=== PATIENT | female | born 1980 | race Two or more races ===

== ENCOUNTER 2021-12-13 09:16 | Emergency (ER) | payer MEDICAID, OTHER ==
[~2021-12-13] VITALS: Ht 157.5 cm; Wt 74.6 kg
[2021-12-13 09:22] VITALS: BP 157/100
== END 2021-12-13 11:35 | disposition left against medical advice (07) ==
LOC: ER 09:16
DX: R04.0 Epistaxis (principal); Z53.21 Procedure and treatment not carried out due to patient leaving prior to being seen by health care provider

== ENCOUNTER 2022-03-25 16:14 | Inpatient (IN) | payer MEDICAID ==
[~2022-03-25] VITALS: Ht 157.5 cm; Wt 71.0 kg
[2022-03-25] MEDS ORDERED: ASPirin 81 mg TAB PO ONE (16:45)
[2022-03-25] MEDS ORDERED: SODIUM CHLORIDE 0.9% 1,000 ML IV ONE (16:45)
[2022-03-25] MEDS ORDERED: METOPROLOL TARTRATE 25 MG TAB PO ONE (17:00)
[2022-03-25] MEDS ORDERED: METOPROLOL TARTRATE 1MG/1ML-5ML VIAL IV ONE (17:00)
[2022-03-25 17:40] LABS: Albumin 2.8 g/dL (3.4-5.0); Calcium 8.6 mg/dL (8.5-10.1); Potassium 4.3 mmol/L (3.5-5.1)
[2022-03-25 17:43] LABS: Bilirubin, Total 0.5 mg/dL (0.2-1.0); Total Protein 7.5 g/dL (6.4-8.2)
[2022-03-25 17:51] LABS: Basophils # (auto) 0 10 ^3/uL (0-0.2); Eosinophils # (auto) 0 10 ^3/uL (0-0.8); Eosinophils % (auto) 0.1 % (0.0-7.0); Mean Corpuscular Hemoglobin 15.3 pg (28.0-32.0)
[2022-03-25 17:53] LABS: Basophils % (auto) 0.1 % (0.0-2.0); Hematocrit 24.2 % (36.0-46.0); Hemoglobin 7.1 g/dL (12.2-16.2); Lymphocytes # (auto) 0.8 10 ^3/uL (0.4-5.4); Lymphocytes % (auto) 8.9 % (10.0-50.0); Mean Corpuscular Hgb Conc. 29.5 g/dL (32.0-36.0); Monocytes # (auto) 0.8 10 ^3/uL (0-1.3); Monocytes % (auto) 8.1 % (0.0-12.0); Neutrophils # (auto) 7.7 10 ^3/uL (1.6-8.6); Neutrophils % (auto) 82.8 % (37.0-80.0); Nucleated Red Blood Cells % 0.2 %; Red Blood Cells 4.66 10^6/uL (4.0-5.20); Red Cell Distribution Width 21.5 % (11.8-14.3); White Blood Cell 9.3 10^3/uL (4.4-10.8)
[2022-03-25] MEDS ORDERED: IOHEXOL 350 MG/ML 100ML IJ ONE (18:38)
[2022-03-25] MEDS ORDERED: LACTATED RINGER'S 1,000 ML IV ONE (20:45)
[2022-03-25 20:48] LABS: Urine Bacteria FEW /hpf (None Seen); Urine Blood Negative /uL (Negative); Urine Mucus FEW (None Seen)
[2022-03-25 20:50] LABS: Urine Specific Gravity > 1.050 (1.001-1.035)
[2022-03-25 20:51] LABS: Urine WBC 20-22 /hpf (0 - 5)
[2022-03-25] MEDS ORDERED: DOCUSATE SOD 100 MG CAP PO PRN (21:30)
[2022-03-25] MEDS ORDERED: IBUPROFEN 600 MG TAB PO PRN (21:30)
[2022-03-25] MEDS ORDERED: AZITHROMYCIN 500MG/ 250ML 250 ML IV ONE (21:30)
[2022-03-25] MEDS ORDERED: NITROGLYCERIN 0.4 MG SL TAB SL PRN (21:30)
[2022-03-25] MEDS ORDERED: TEMAZEPAM 15 MG CAP PO PRN (21:30)
[2022-03-25] MEDS ORDERED: MORPHINE SULFATE INJ 2 MG/ml SYRG IV PRN (21:30)
[2022-03-25] MEDS ORDERED: SODIUM CHLORIDE 0.9% 1,000 ML IV SCH (21:30)
[2022-03-25] MEDS ORDERED: ALBUTEROL SULF HFA 90MCG INH 200DOSE IN SCH (22:00)
[2022-03-25 22:25] LABS: Albumin 2.6 g/dL (3.4-5.0); Calcium 8.6 mg/dL (8.5-10.1); Potassium 4.3 mmol/L (3.5-5.1)
[2022-03-25 22:28] LABS: BUN/Creatinine Ratio 23.8; Bilirubin, Total 0.4 mg/dL (0.2-1.0); Total Protein 7.5 g/dL (6.4-8.2)
[2022-03-25 22:30] LABS: Basophils # (auto) 0 10 ^3/uL (0-0.2); Eosinophils # (auto) 0 10 ^3/uL (0-0.8); Hemoglobin 7.1 g/dL (12.2-16.2); Monocytes # (auto) 0.7 10 ^3/uL (0-1.3); Neutrophils # (auto) 6.4 10 ^3/uL (1.6-8.6); Nucleated Red Blood Cells % 0.2 %; White Blood Cell 8.1 10^3/uL (4.4-10.8)
[2022-03-25 22:31] LABS: Basophils % (auto) 0.4 % (0.0-2.0); Hematocrit 26.3 % (36.0-46.0); Lymphocytes # (auto) 0.9 10 ^3/uL (0.4-5.4); Lymphocytes % (auto) 11.6 % (10.0-50.0); Mean Corpuscular Hemoglobin 14.2 pg (28.0-32.0); Mean Corpuscular Hgb Conc. 27.1 g/dL (32.0-36.0); Mean Corpuscular Volume 52.3 fL (80.0-100.0); Monocytes % (auto) 8.2 % (0.0-12.0); Neutrophils % (auto) 79.8 % (37.0-80.0); Red Blood Cells 5.02 10^6/uL (4.0-5.20)
[2022-03-25] MEDS ORDERED: ALBUTEROL SULF 2.5 MG/0.5ML(0.5%) NEB SOLN NEB PRN (23:15)
[2022-03-25] MEDS: ONDANSETRON HCL 4 MG/2 ML VIAL IV PRN (23:25)
[2022-03-25] MEDS: METOPROLOL TARTRATE 50 MG TAB PO SCH (23:28)
[2022-03-26] VITALS (7 sets, daily range): BP systolic 124–152; BP diastolic 87–101
[2022-03-26 07:05] LABS: Basophils # (auto) 0 10 ^3/uL (0-0.2); Eosinophils # (auto) 0 10 ^3/uL (0-0.8); Hemoglobin 7.5 g/dL (12.2-16.2)
[2022-03-26 07:09] LABS: Basophils % (auto) 0.1 % (0.0-2.0); Lymphocytes # (auto) 0.8 10 ^3/uL (0.4-5.4); Lymphocytes % (auto) 8.1 % (10.0-50.0); Mean Corpuscular Hemoglobin 15.2 pg (28.0-32.0); Mean Corpuscular Hgb Conc. 28.7 g/dL (32.0-36.0); Mean Corpuscular Volume 52.8 fL (80.0-100.0); Monocytes # (auto) 0.6 10 ^3/uL (0-1.3); Monocytes % (auto) 6.1 % (0.0-12.0); Neutrophils # (auto) 7.9 10 ^3/uL (1.6-8.6); Neutrophils % (auto) 85.7 % (37.0-80.0); Nucleated Red Blood Cells % 0.4 %; Red Blood Cells 4.94 10^6/uL (4.0-5.20); Red Cell Distribution Width 21.8 % (11.8-14.3); White Blood Cell 9.2 10^3/uL (4.4-10.8)
[2022-03-26 07:47] LABS: Albumin 2.6 g/dL (3.4-5.0); BUN/Creatinine Ratio 21.5; Bilirubin, Total 0.8 mg/dL (0.2-1.0); Calcium 8.9 mg/dL (8.5-10.1)
[2022-03-26] MEDS: AZITHROMYCIN 500MG/ 250ML 250 ML IV SCH (10:00)
[2022-03-26] MEDS: FAMOTIDINE (10MG/ML) 2ML VL IV SCH (11:30)
[2022-03-26] MEDS: ASPirin 81 mg TAB PO SCH (11:31)
[2022-03-26] MEDS: METOPROLOL TARTRATE 50 MG TAB PO SCH ×2 (11:33→21:54)
[2022-03-26] MEDS: SODIUM CHLORIDE 0.9% 1,000 ML IV SCH ×2 (15:30→23:30)
[2022-03-26] MEDS ORDERED: ALBUTEROL SULF 2.5 MG/0.5ML(0.5%) NEB SOLN NEB PRN (15:45)
[2022-03-26] MEDS ORDERED: ALBUTEROL MEDNEB 2.5 mg/3ml NEB ONE (18:57)
[2022-03-26] MEDS: HYDROcodone-ACET 5/325MG TAB PO PRN (20:49)
[2022-03-26] MEDS: hydrALAZINE HCL 20 MG/ML VL IV PRN (22:10)
[2022-03-27] VITALS (13 sets, daily range): BP systolic 110–162; BP diastolic 69–102
[2022-03-27] MEDS: hydrALAZINE HCL 20 MG/ML VL IV PRN (05:32)
[2022-03-27 06:22] LABS: INR 1.25 (0.9-1.15); Partial Thromboplastin Time 30.2 sec (24.6-33.4)
[2022-03-27 06:24] LABS: Basophils # (auto) 0 10 ^3/uL (0-0.2); Eosinophils # (auto) 0 10 ^3/uL (0-0.8); Mean Corpuscular Hgb Conc. 28.9 g/dL (32.0-36.0); White Blood Cell 5.8 10^3/uL (4.4-10.8)
[2022-03-27 06:26] LABS: Basophils % (auto) 0.6 % (0.0-2.0); Eosinophils % (auto) 0.6 % (0.0-7.0); Hematocrit 22.2 % (36.0-46.0); Lymphocytes % (auto) 17.1 % (10.0-50.0); Mean Corpuscular Hemoglobin 15.1 pg (28.0-32.0); Mean Corpuscular Volume 52.2 fL (80.0-100.0); Monocytes # (auto) 0.4 10 ^3/uL (0-1.3); Monocytes % (auto) 7.7 % (0.0-12.0); Neutrophils # (auto) 4.3 10 ^3/uL (1.6-8.6); Nucleated Red Blood Cells % 0.6 %; Red Blood Cells 4.25 10^6/uL (4.0-5.20)
[2022-03-27 06:27] LABS: Potassium 3.9 mmol/L (3.5-5.1)
[2022-03-27 06:35] LABS: Albumin 2.5 g/dL (3.4-5.0); BUN/Creatinine Ratio 28.4; Bilirubin, Total 0.6 mg/dL (0.2-1.0); Calcium 8.5 mg/dL (8.5-10.1); Total Protein 7.4 g/dL (6.4-8.2)
[2022-03-27 06:50] LABS: Red Cell Distribution Width 22.1 % (11.8-14.3)
[2022-03-27 06:52] LABS: Hemoglobin 6.4 g/dL (12.2-16.2)
[2022-03-27 07:59] LABS: Basophils # (auto) 0 10 ^3/uL (0-0.2); Eosinophils # (auto) 0 10 ^3/uL (0-0.8)
[2022-03-27 08:01] LABS: Basophils % (auto) 0.2 % (0.0-2.0); Eosinophils % (auto) 0.1 % (0.0-7.0); Hematocrit 23.2 % (36.0-46.0); Lymphocytes # (auto) 0.8 10 ^3/uL (0.4-5.4); Mean Corpuscular Volume 51.9 fL (80.0-100.0); Monocytes # (auto) 0.5 10 ^3/uL (0-1.3); Monocytes % (auto) 5.8 % (0.0-12.0); Neutrophils # (auto) 7.4 10 ^3/uL (1.6-8.6); Neutrophils % (auto) 84.9 % (37.0-80.0); Nucleated Red Blood Cells % 0.2 %; Red Blood Cells 4.47 10^6/uL (4.0-5.20); White Blood Cell 8.7 10^3/uL (4.4-10.8)
[2022-03-27] MEDS: SODIUM CHLORIDE 0.9% 1,000 ML IV SCH (08:16)
[2022-03-27] MEDS: FAMOTIDINE (10MG/ML) 2ML VL IV SCH (08:31)
[2022-03-27] MEDS: METOPROLOL TARTRATE 50 MG TAB PO SCH (08:32)
[2022-03-27] MEDS: ASPirin 81 mg TAB PO SCH (08:32)
[2022-03-27] MEDS: AZITHROMYCIN 500MG/ 250ML 250 ML IV SCH (08:32)
[2022-03-27] MEDS: MORPHINE SULFATE INJ 2 MG/ml SYRG IV PRN ×2 (08:33→18:22)
[2022-03-27 08:38] LABS: Red Cell Distribution Width 21.3 % (11.8-14.3)
[2022-03-27 08:42] LABS: Hemoglobin 6.7 g/dL (12.2-16.2)
[2022-03-27] MEDS: HYDROcodone-ACET 5/325MG TAB PO PRN ×2 (08:48→15:47)
[2022-03-27] MEDS ORDERED: FUROSEMIDE 40 MG/4 ML VIAL IV ONE (11:30)
[2022-03-27 13:03] LABS: Ferritin 34.1 ng/mL (10-322)
[2022-03-27 13:50] LABS: Hepatitis B Surface Antibody Negative (Negative)
[2022-03-27] MEDS: ACETAMINOPHEN 500 MG TAB PO SCH ×2 (13:58→22:12)
[2022-03-27] MEDS: FUROSEMIDE 40 MG/4 ML VIAL IV SCH (17:57)
[2022-03-27] MEDS: ONDANSETRON HCL 4 MG/2 ML VIAL IV PRN (18:21)
[2022-03-27 19:11] LABS: Hepatitis C Antibody Negative (Negative)
[2022-03-27 20:28] LABS: Hemoglobin 9.2 g/dL (12.2-16.2)
[2022-03-27 20:29] LABS: Hematocrit 29.9 % (36.0-46.0)
[2022-03-28] VITALS (10 sets, daily range): BP systolic 129–171; BP diastolic 87–103
[2022-03-28] MEDS: HYDROcodone-ACET 5/325MG TAB PO PRN ×2 (03:48→17:45)
[2022-03-28] MEDS: ACETAMINOPHEN 500 MG TAB PO SCH ×3 (06:05→22:00)
[2022-03-28 06:22] LABS: Albumin 2.6 g/dL (3.4-5.0); Calcium 8.1 mg/dL (8.5-10.1); Potassium 3.4 mmol/L (3.5-5.1)
[2022-03-28 06:25] LABS: BUN/Creatinine Ratio 23.4
[2022-03-28 06:28] LABS: Bilirubin, Total 0.9 mg/dL (0.2-1.0); Total Protein 7.2 g/dL (6.4-8.2)
[2022-03-28] MEDS: FUROSEMIDE 40 MG/4 ML VIAL IV SCH ×2 (07:00→17:45)
[2022-03-28 07:35] LABS: Basophils # (auto) 0 10 ^3/uL (0-0.2); Eosinophils # (auto) 0.1 10 ^3/uL (0-0.8)
[2022-03-28 07:37] LABS: Basophils % (auto) 0.6 % (0.0-2.0); Eosinophils % (auto) 1.2 % (0.0-7.0); Hematocrit 28.6 % (36.0-46.0); Lymphocytes % (auto) 17.3 % (10.0-50.0); Mean Corpuscular Hemoglobin 17.7 pg (28.0-32.0); Mean Corpuscular Hgb Conc. 31.3 g/dL (32.0-36.0); Mean Corpuscular Volume 56.6 fL (80.0-100.0); Monocytes # (auto) 0.3 10 ^3/uL (0-1.3); Monocytes % (auto) 5.8 % (0.0-12.0); Neutrophils # (auto) 4.4 10 ^3/uL (1.6-8.6); Neutrophils % (auto) 75.1 % (37.0-80.0); Nucleated Red Blood Cells % 0.6 %; Red Blood Cells 5.05 10^6/uL (4.0-5.20); White Blood Cell 5.9 10^3/uL (4.4-10.8)
[2022-03-28 07:39] LABS: Red Cell Distribution Width 22.5 % (11.8-14.3)
[2022-03-28] MEDS: ASPirin 81 mg TAB PO SCH (09:18)
[2022-03-28] MEDS: MORPHINE SULFATE INJ 2 MG/ml SYRG IV PRN (09:19)
[2022-03-28] MEDS: ONDANSETRON HCL 4 MG/2 ML VIAL IV PRN (09:25)
[2022-03-28] MEDS ORDERED: POTASSIUM EFFERVESENT TAB 25 MEQ PO ONE (11:00)
[2022-03-28 11:14] LABS: Cholesterol 106 mg/dL (< 200); Triglycerides 167 mg/dL (< 150)
[2022-03-28 11:16] LABS: HDL Cholesterol 10 mg/dL (40-59); LDL Cholesterol 85 mg/dL (< 100)
[2022-03-28] MEDS ORDERED: CARVEDILOL 3.125 MG TAB PO ONE (11:30)
[2022-03-28] MEDS ORDERED: hydrALAZINE HCL 20 MG/ML VL IV PRN (11:30)
[2022-03-28] MEDS ORDERED: SACUBITRIL-VALSARTAN 24mg/26mg TAB PO ONE (11:30)
[2022-03-28] MEDS ORDERED: MIDAZOLAM HCL 2MG/2ML 2ml VIAL (1mg/ml) ONE (14:13)
[2022-03-28] MEDS ORDERED: fentaNYL CITRATE 100 MCG/2 ML VL ONE (14:13)
[2022-03-28] MEDS ORDERED: LIDOCAINE 2%HCL (LOCAL ANESTH.) INJ 10ml MDV ONE (14:14)
[2022-03-28] MEDS ORDERED: IODIXANOL 320MG/ML 100ML BTL IV ONE (14:17)
[2022-03-28] MEDS: SACUBITRIL-VALSARTAN 24mg/26mg TAB PO SCH (22:02)
[2022-03-28] MEDS: CARVEDILOL 3.125 MG TAB PO SCH (22:02)
[2022-03-29] MEDS: HYDROcodone-ACET 5/325MG TAB PO PRN ×3 (01:17→20:52)
[2022-03-29 02:34] VITALS: BP 168/93
[2022-03-29 05:25] VITALS: BP 127/79
[2022-03-29] MEDS: FUROSEMIDE 40 MG/4 ML VIAL IV SCH ×2 (05:37→18:11)
[2022-03-29] MEDS: ACETAMINOPHEN 500 MG TAB PO SCH ×4 (05:46→21:04)
[2022-03-29 06:41] LABS: Basophils # (auto) 0 10 ^3/uL (0-0.2); Eosinophils % (auto) 1.1 % (0.0-7.0); Hemoglobin 9.3 g/dL (12.2-16.2); Lymphocytes # (auto) 1.3 10 ^3/uL (0.4-5.4); Monocytes # (auto) 0.4 10 ^3/uL (0-1.3); Neutrophils # (auto) 2.8 10 ^3/uL (1.6-8.6)
[2022-03-29 06:44] LABS: Basophils % (auto) 0.2 % (0.0-2.0); Eosinophils # (auto) 0.1 10 ^3/uL (0-0.8); Hematocrit 30.5 % (36.0-46.0); Lymphocytes % (auto) 29.1 % (10.0-50.0); Mean Corpuscular Hemoglobin 17.3 pg (28.0-32.0); Mean Corpuscular Hgb Conc. 30.4 g/dL (32.0-36.0); Mean Corpuscular Volume 56.7 fL (80.0-100.0); Monocytes % (auto) 9.2 % (0.0-12.0); Neutrophils % (auto) 60.4 % (37.0-80.0); Nucleated Red Blood Cells % 0.6 %; Red Blood Cells 5.38 10^6/uL (4.0-5.20); White Blood Cell 4.6 10^3/uL (4.4-10.8)
[2022-03-29 06:54] LABS: Red Cell Distribution Width 22.2 % (11.8-14.3)
[2022-03-29 06:58] LABS: Potassium 3.5 mmol/L (3.5-5.1)
[2022-03-29 07:02] LABS: Albumin 2.5 g/dL (3.4-5.0); BUN/Creatinine Ratio 23.3; Calcium 8.5 mg/dL (8.5-10.1)
[2022-03-29 07:07] LABS: Bilirubin, Total 0.6 mg/dL (0.2-1.0); Total Protein 7.1 g/dL (6.4-8.2)
[2022-03-29 08:20] VITALS: BP 138/88
[2022-03-29] MEDS: ASPirin 81 mg TAB PO SCH (09:38)
[2022-03-29] MEDS: CARVEDILOL 3.125 MG TAB PO SCH ×2 (09:40→20:51)
[2022-03-29] MEDS: SACUBITRIL-VALSARTAN 24mg/26mg TAB PO SCH ×2 (09:40→20:51)
[2022-03-29 12:57] VITALS: BP 137/84
[2022-03-29 16:29] VITALS: BP 114/78
[2022-03-29 22:24] VITALS: BP 131/79
[2022-03-30 04:42] VITALS: BP 124/76
[2022-03-30] MEDS: FUROSEMIDE 40 MG/4 ML VIAL IV SCH (06:20)
[2022-03-30] MEDS: ACETAMINOPHEN 500 MG TAB PO SCH ×2 (06:20→16:39)
[2022-03-30 06:48] LABS: Basophils # (auto) 0 10 ^3/uL (0-0.2); Mean Corpuscular Volume 57.4 fL (80.0-100.0); Monocytes # (auto) 0.4 10 ^3/uL (0-1.3)
[2022-03-30 06:49] LABS: Basophils % (auto) 0.4 % (0.0-2.0); Eosinophils # (auto) 0 10 ^3/uL (0-0.8); Eosinophils % (auto) 0.7 % (0.0-7.0); Hematocrit 31.3 % (36.0-46.0); Hemoglobin 9.4 g/dL (12.2-16.2); Lymphocytes # (auto) 1.3 10 ^3/uL (0.4-5.4); Lymphocytes % (auto) 25.4 % (10.0-50.0); Mean Corpuscular Hemoglobin 17.2 pg (28.0-32.0); Monocytes % (auto) 7.3 % (0.0-12.0); Neutrophils # (auto) 3.5 10 ^3/uL (1.6-8.6); Neutrophils % (auto) 66.2 % (37.0-80.0); Nucleated Red Blood Cells % 0.4 %; Red Blood Cells 5.45 10^6/uL (4.0-5.20); White Blood Cell 5.3 10^3/uL (4.4-10.8)
[2022-03-30 06:51] LABS: Red Cell Distribution Width 30.3 % (11.8-14.3)
[2022-03-30 06:55] LABS: Potassium 3.4 mmol/L (3.5-5.1)
[2022-03-30 07:03] LABS: Albumin 2.7 g/dL (3.4-5.0); BUN/Creatinine Ratio 22.1; Bilirubin, Total 0.6 mg/dL (0.2-1.0); Calcium 8.5 mg/dL (8.5-10.1); Total Protein 7.3 g/dL (6.4-8.2)
[2022-03-30 09:00] VITALS: BP 111/57
[2022-03-30] MEDS: ASPirin 81 mg TAB PO SCH (09:36)
[2022-03-30] MEDS: SACUBITRIL-VALSARTAN 24mg/26mg TAB PO SCH (09:36)
[2022-03-30] MEDS: CARVEDILOL 3.125 MG TAB PO SCH (09:37)
[2022-03-30] MEDS: HYDROcodone-ACET 5/325MG TAB PO PRN (09:48)
[2022-03-30 13:00] VITALS: BP 120/73
[2022-03-30 16:48] VITALS: BP 106/69
[2022-03-31] MEDS ORDERED: SACU1TAB PO (10:32)
[2022-03-31] MEDS ORDERED: FURO1TAB33 GT (10:32)
[2022-03-31] MEDS ORDERED: FER325T PO (10:32)
[2022-03-31] MEDS ORDERED: CAR3125T OR (10:32)
[2022-03-31] MEDS ORDERED: NAPR-1334 PO (10:32)
== END 2022-03-30 21:11 | disposition home or self-care (01) | DRG 194 ==
LOC: ER 16:15 → TELE 21:16 → TELE-WESTW 03-26 00:13
PROVIDERS: ADMIT Nurse Practitioner Family; ATTEND Student in an Organized Health Care Education/Training Program
PROC: 30233N1 Transfusion of Nonautologous Red Blood Cells into Peripheral Vein, Percutaneous Approach (ICD-10-PCS; principal; 2022-03-27)
DX: I11.0 Hypertensive heart disease with heart failure (principal); I31.39 Other pericardial effusion (noninflammatory); E44.0 Moderate protein-calorie malnutrition; N17.9 Acute kidney failure, unspecified; D50.9 Iron deficiency anemia, unspecified; I50.23 Acute on chronic systolic (congestive) heart failure; Z68.28 Body mass index [BMI] 28.0-28.9, adult; R00.0 Tachycardia, unspecified; R74.8 Abnormal levels of other serum enzymes; R79.89 Other specified abnormal findings of blood chemistry; E87.6 Hypokalemia; D53.9 Nutritional anemia, unspecified
CPT/HCPCS: 33016; 36415; 71046; 71275; 76775; 80053; 80061; 81001; 82607; 82728; 83036; 83540; 83550; 83735; 84443; 84484; 84702; 85014; 85018; 85025; 85379; 85610; 85652; 85730; 86038; 86141; 86704; 86706; 86803; 86850; 86900; 86901; 86920; 87340; 87426; 87804; 93005; 93306; 96361; 96365; 96366; 96375; 99152; G0378; J2001; J2250; J2405; J3490; Q9967

== ENCOUNTER 2022-10-24 11:38 | Inpatient (IN) | payer MEDICAID ==
[~2022-10-24] VITALS: Ht 157.5 cm; Wt 77.0 kg
[2022-10-24] VITALS (12 sets, daily range): BP systolic 118–142; BP diastolic 62–82
[~2022-10-24 11:38] MED LIST: CAR3125T OR; FER325T PO; FURO1TAB33 GT; NAPR-1334 PO; SACU1TAB PO
[2022-10-24 12:11] LABS: Basophils # (auto) 0 10 ^3/uL (0-0.2); Eosinophils # (auto) 0.1 10 ^3/uL (0-0.8); Lymphocytes # (auto) 0.9 10 ^3/uL (0.4-5.4); Monocytes # (auto) 0.3 10 ^3/uL (0-1.3); Neutrophils # (auto) 4.3 10 ^3/uL (1.6-8.6)
[2022-10-24 12:13] LABS: Basophils % (auto) 0.4 % (0.0-2.0); Eosinophils % (auto) 1.4 % (0.0-7.0); Hematocrit 14.6 % (36.0-46.0); Lymphocytes % (auto) 16.2 % (10.0-50.0); Mean Corpuscular Hemoglobin 15.6 pg (28.0-32.0); Mean Corpuscular Hgb Conc. 27.1 g/dL (32.0-36.0); Mean Corpuscular Volume 57.4 fL (80.0-100.0); Monocytes % (auto) 5.7 % (0.0-12.0); Neutrophils % (auto) 76.3 % (37.0-80.0); Nucleated Red Blood Cells % 1.7 %; Red Blood Cells 2.54 10^6/uL (4.0-5.20); White Blood Cell 5.7 10^3/uL (4.4-10.8)
[2022-10-24 12:25] LABS: Red Cell Distribution Width 26.7 % (11.8-14.3)
[2022-10-24 12:28] LABS: Urine Bacteria MOD /hpf (None Seen); Urine Blood 1+ /uL (Negative); Urine Specific Gravity 1.014 (1.001-1.035); Urine WBC 2 /hpf (0 - 5)
[2022-10-24 12:35] LABS: Albumin 3.2 g/dL (3.4-5.0); BUN/Creatinine Ratio 15.7 (10.0-20.0); Calcium 8.2 mg/dL (8.5-10.1); Potassium 3.8 mmol/L (3.5-5.1)
[2022-10-24 12:42] LABS: Bilirubin, Total 0.4 mg/dL (0.2-1.0); Total Protein 6.7 g/dL (6.4-8.2)
[2022-10-24 13:00] LABS: INR 1.04 (0.9-1.15); Partial Thromboplastin Time 23.4 SEC (24.5-34.5)
[2022-10-24] MEDS ORDERED: ACETAMINOPHEN 325 MG TAB PO PRN (16:15)
[2022-10-24] MEDS ORDERED: ONDANSETRON HCL 4 MG/2 ML VIAL IV PRN (16:15)
[2022-10-24] MEDS ORDERED: HYDROcodone-ACET 5/325MG TAB PO PRN (16:15)
[2022-10-24] MEDS ORDERED: DOCUSATE SOD 100 MG CAP PO PRN (16:15)
[2022-10-24] MEDS: SODIUM CHLOR 0.9% PF (SALINE LOCK) 10ML VIAL/SYR IV SCH (21:30)
[2022-10-25] MEDS ORDERED: ASPI-325 PO (00:20)
[2022-10-25] MEDS ORDERED: METH2.5T PO (00:20)
[2022-10-25] MEDS ORDERED: HYDR200T36 PO (00:20)
[2022-10-25] MEDS ORDERED: FOLI-119 PO (00:20)
[2022-10-25] MEDS ORDERED: PRED10TA PO (00:20)
[2022-10-25 00:40] LABS: Basophils # (auto) 0 10 ^3/uL (0-0.2); Basophils % (auto) 0.4 % (0.0-2.0); Eosinophils # (auto) 0.1 10 ^3/uL (0-0.8); Hemoglobin 7.5 g/dL (12.2-16.2); Monocytes # (auto) 0.4 10 ^3/uL (0-1.3)
[2022-10-25 00:42] LABS: Eosinophils % (auto) 1.4 % (0.0-7.0); Hematocrit 23.8 % (36.0-46.0); Lymphocytes # (auto) 0.9 10 ^3/uL (0.4-5.4); Mean Corpuscular Hemoglobin 21.2 pg (28.0-32.0); Mean Corpuscular Hgb Conc. 31.5 g/dL (32.0-36.0); Mean Corpuscular Volume 67.4 fL (80.0-100.0); Neutrophils # (auto) 4.8 10 ^3/uL (1.6-8.6); Neutrophils % (auto) 77.2 % (37.0-80.0); Nucleated Red Blood Cells % 1.5 %; Red Blood Cells 3.53 10^6/uL (4.0-5.20); White Blood Cell 6.2 10^3/uL (4.4-10.8)
[2022-10-25 00:43] LABS: Red Cell Distribution Width 32.9 % (11.8-14.3)
[2022-10-25 04:57] VITALS: BP 143/80
[2022-10-25] MEDS: SODIUM CHLOR 0.9% PF (SALINE LOCK) 10ML VIAL/SYR IV SCH ×3 (06:00→22:00)
[2022-10-25 08:30] VITALS: BP 122/71
[2022-10-25] MEDS: FERROUS SULFATE 325mg EC TAB PO SCH (09:59)
[2022-10-25 13:00] VITALS: BP 130/77
[2022-10-25 16:32] VITALS: BP 149/77
[2022-10-25 22:00] VITALS: BP 135/81
[2022-10-26 05:00] VITALS: BP 123/71
[2022-10-26 07:04] LABS: Basophils # (auto) 0 10 ^3/uL (0-0.2); Eosinophils # (auto) 0.1 10 ^3/uL (0-0.8); Hemoglobin 7.4 g/dL (12.2-16.2); Monocytes # (auto) 0.3 10 ^3/uL (0-1.3); Neutrophils # (auto) 3.5 10 ^3/uL (1.6-8.6)
[2022-10-26 07:06] LABS: Basophils % (auto) 0.6 % (0.0-2.0); Eosinophils % (auto) 2.5 % (0.0-7.0); Lymphocytes % (auto) 20.4 % (10.0-50.0); Mean Corpuscular Hemoglobin 20.7 pg (28.0-32.0); Mean Corpuscular Hgb Conc. 30.8 g/dL (32.0-36.0); Mean Corpuscular Volume 67.3 fL (80.0-100.0); Monocytes % (auto) 6.3 % (0.0-12.0); Neutrophils % (auto) 70.2 % (37.0-80.0); Nucleated Red Blood Cells % 2.1 %; Red Blood Cells 3.57 10^6/uL (4.0-5.20)
[2022-10-26 07:07] LABS: Red Cell Distribution Width 32.9 % (11.8-14.3)
[2022-10-26] MEDS: SODIUM CHLOR 0.9% PF (SALINE LOCK) 10ML VIAL/SYR IV SCH (08:00)
[2022-10-26 09:04] VITALS: BP 147/78
[2022-10-26] MEDS: FERROUS SULFATE 325mg EC TAB PO SCH (09:59)
[2022-10-26 12:56] VITALS: BP 131/79
== END 2022-10-26 14:19 | disposition home or self-care (01) | DRG 663 ==
LOC: ER 11:38 → OVERFLOW 16:10 → WEST WING 21:49
PROVIDERS: ADMIT Family Medicine; ATTEND Family Medicine
PROC: 30233N1 Transfusion of Nonautologous Red Blood Cells into Peripheral Vein, Percutaneous Approach (ICD-10-PCS; principal; 2022-10-24)
DX: D64.9 Anemia, unspecified (principal); N92.0 Excessive and frequent menstruation with regular cycle
CPT/HCPCS: 36415; 36430; 76830; 76856; 80053; 81001; 85025; 85610; 85730; 86850; 86900; 86901; 86920; 93005; 96374; G0378

== ENCOUNTER 2024-07-24 15:55 | Inpatient (IN) | payer MEDICAID, OTHER ==
[~2024-07-24] VITALS: Ht 157.5 cm; Wt 82.1 kg
[~2024-07-24 15:55] MED LIST changes: +ASPI-325 PO; -CAR3125T OR; +CARV-214 OR; +FOLI-119 PO; +HYDR200T36 PO; +METH2.5T PO; -NAPR-1334 PO; +NAPR-1335 PO; +PRED10TA PO
--- NOTE | 2024-07-24 16:37 | ED.PDOC ---
History of Present Illness HPI Comments 44 y/o F is [id number] daughter for c/o chest pain, dizziness, lightheadedness, nausea, and vomiting, today. Per daughter, patient is a [place]or[place] speaker and endorses on additional onset of nausea and vomiting symptoms, this morning, after having other remaining symptoms ongoing for the past 3x days following initial unprovoked and gradual onset. Patient has a reported history of anemia w/blood transfusions, HTN, and lupus. She describes pain as pressure- like in quality. Patient denies any fever, chills, shortness of breath, or other associated symptoms or modifiers at this time. 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 Was a procedure done?: No Differential Dx Considerations may include: AL, PE, ACS, URI, PNA, anxiety, vertigo, among others X-Ray, Labs, Meds, VS Vital Signs Date Time Temp Pulse Resp B/P (MAP) Pulse Ox O2 Delivery O2 Flow Rate FiO2 07/24/24 17:02 108 07/24/24 16:53 98.5 111 18 137/80 (99) 100 98.5 Lab Test 07/24/24 16:50 Range/Units White Blood Count Pending Red Blood Count Pending Hemoglobin Pending Hematocrit Pending Mean Corpuscular Volume Pending Mean Corpuscular Hemoglobin Pending Mean Corpuscular Hemoglobin Concent Pending Red Cell Distribution Width Pending Platelet Count Pending Mean Platelet Volume Pending Neutrophils (%) (Auto) Pending Lymphocytes (%) (Auto) Pending Monocytes (%) (Auto) Pending Basophils (%) (Auto) Pending Neutrophils # (Auto) Pending Lymphocytes # (Auto) Pending Monocytes # (Auto) Pending Sodium Level Pending Potassium Level Pending Chloride Level Pending Carbon Dioxide Level Pending Anion Gap Pending Blood Urea Nitrogen Pending Creatinine Pending Glomerular Filtration Rate Calc Pending BUN/Creatinine Ratio Pending Serum Glucose Pending Calcium Level Pending Total Bilirubin Pending Aspartate Amino Transferase (AST) Pending Alanine Aminotransferase (ALT) Pending Alkaline Phosphatase Pending Troponin I High Sensitivity Pending Total Protein Pending Albumin Pending Lipase Pending Time of 1ST Reevaluation: 16:50 Reevaluation 1ST: Unchanged Patient Education/Counseling: Diagnosis, Treatment Family Education/Counseling: No Family Present Critical Care Note Critical Care Time?: No Stability Stability form required: No Heart Score Heart Score: Heart Score Response (Comments) Value History Moderate Suspicious 1 EKG Normal 0 Age <45 0 Risk Factors 1 or 2 risk factors 1 Total 2 I personally scribed for KAYLI TOWNSEND MD ([email or web address]) on 07/24/24 at 16:37. Electronically submitted by Hollis Oveido ([email or web address]). I personally scribed for KAYLI TOWNSEND MD ([email or web address]) on 07/24/24 at 17:37. Electronically submitted by Hollis Oviedo ([email or web address]). KAYLI TOWNSEND MD Jul 24, 2024 16:37
[2024-07-24 17:34] LABS: Basophils # (auto) 0 10 ^3/uL (0-0.2); Eosinophils # (auto) 0 10 ^3/uL (0-0.8); Lymphocytes # (auto) 0.8 10 ^3/uL (0.4-5.4)
[2024-07-24 17:36] LABS: Basophils % (auto) 0.1 % (0.0-2.0); Eosinophils % (auto) 0.4 % (0.0-7.0); Hematocrit 18.3 % (36.0-46.0); Lymphocytes % (auto) 15.4 % (10.0-50.0); Mean Corpuscular Hgb Conc. 30.8 g/dL (32.0-36.0); Mean Corpuscular Volume 74.5 fL (80.0-100.0); Monocytes # (auto) 0.3 10 ^3/uL (0-1.3); Monocytes % (auto) 6.3 % (0.0-12.0); Neutrophils # (auto) 4.1 10 ^3/uL (1.6-8.6); Neutrophils % (auto) 77.8 % (37.0-80.0); Nucleated Red Blood Cells % 0.9 %; Platelet Count (auto) 265 10^3/uL (140-450); Red Blood Cells 2.46 10^6/uL (4.0-5.20); White Blood Cell 5.3 10^3/uL (4.4-10.8)
--- NOTE | 2024-07-24 17:43 | ED.PDOC ---
History of Present Illness HPI Comments 44 y/o Malagasy-speaking only F is [id number] daughter for c/o chest pain, dizziness, lightheadedness, nausea, and vomiting, today. Per daughter, patient is a Malagasy speaker and endorses on additional onset of nausea and vomiting symptoms, this morning, after having other remaining symptoms ongoing for the past 3x days following initial unprovoked and gradual onset. Patient has a reported history of anemia w/blood transfusions, HTN, and lupus. She describes pain as pressure-like in quality. Patient denies any fever, chills, shortness of breath, or other associated symptoms or modifiers at this time. Patient was tachycardic at arrival. 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 PATTERN SHOP SUPERVISOR Hx Family History Family History: Unknown Social History Smoker: Non-Smoker Alcohol: Denies ETOH Use Drugs: Denies Drug Use Lives In: Home Constitutional: reports: fatigue, weakness; denies: chills, diaphoresis, fever, malaise, sweats, others EENTM: denies: blurred vision, double vision, ear bleeding, ear discharge, ear drainage, ear pain, ear ringing, eye pain, eye redness, hearing loss, mouth pain, mouth swelling, nasal discharge, nose bleeding, nose congestion, nose pain, photophobia, tearing, throat pain, throat swelling, voice changes, others Respiratory: denies: cough, hemoptysis, orthopnea, SOB at rest, shortness of breath, SOB with excertion, stridor, wheezing, others Cardiovascular: reports: chest pain; denies: dizzy spells, diaphoresis, Dyspnea on exertion, edema, irregular heart beat, left arm pain, lightheadedness, palpitations, PND, syncope, others Gastrointestinal: reports: nausea, vomiting; denies: abdomen distended, abdominal pain, blood streaked bowels, constipated, diarrhea, dysphagia, difficulty swallowing, hematemesis, melena, poor appetite, poor fluid intake, rectal bleeding, rectal pain, others Genitourinary: denies: abnormal vagina bleeding, burning, dyspareunia, dysuria, flank pain, frequency, hematuria, incontinence, pain, , vagina discharge, urgency, others Neurological: reports: dizziness; denies: fainting, headache, left sided numbness, left sided weakness, numbness, paresthesia, pre-existing deficit, right sided numbness, right sided weakness, seizure, speech problems, tingling, tremors, weakness, others Musculoskeletal: denies: back pain, gout, joint pain, joint swelling, muscle pain, muscle stiffness, neck pain, others Integumetry: denies: bruises, change in color, change in hair/nails, dryness, laceration, lesions, lumps, rash, wounds, others Allergic/Immunocompromised: denies: Difficulty Healing, Frequent Infections, Hives, Itching, others Hematologic/Lymphatic: denies: anemia, blood clots, easy bleeding, easy bruising, swollen glands, others Endocrine: denies: excessive hunger, excessive sweating, excessive thirst, excessive urination, flushing, intolerance to cold, intolerance to heat, unexplained weight gain, unexplained weight loss, others Psychiatric: denies: anxiety, bipolar disorder, depression, hopeless, panic disorder, schizophrenia, sleepless, suicidal, others All Other Systems: Reviewed and Negative (Comprehensive systems review obtained and negative except for what is stated in the HPI.) Physical Exam General Appearance: Moderate Distress (Patient was pale at time of evaluation and appears to be in [id number] distress due to concerns about her illness rather than definitive complaints.), Normal HEENT: Normal ENT Inspection, Pharynx Normal, TMs Normal Neck: Full Range of Motion, Non-Tender, Normal, Normal Inspection Respiratory: Chest Non-Tender, Lungs Clear, No Accessory Muscle Use, No Respiratory Distress, Normal Breath Sounds Cardiovascular: No Edema, No JVD, No Murmur, No Gallop, Normal Peripheral Pulses, Regular Rate/Rhythm Breast Exam: Deferred Gastrointestinal: No Organomegaly, Non Tender, No Pulsatile Mass, Normal Bowel Sounds, Soft Genitalia: Deferred Pelvic: Deferred Rectal: Deferred Extremities: No calf tenderness, Normal capillary refill, Normal inspection, Normal range of motion, Non-tender, No pedal edema Neurologic: Alert, No Motor Deficits, Normal Affect, Normal Mood, No Sensory Deficits Cerebellar Function: Normal Reflexes: Normal Skin: Pallor Lymphatic: No Adenopathy Was a procedure done? Was a procedure done?: No EKG EKG : Pulse Rate (adult): 108 [place]: Normal Cardiac Rhythm: ST Block: None Hypertrophy: None ST: Normal Differential Dx Considerations may include: MA, PE, ACS, URI, anxiety, vertigo, anemia X-Ray, Labs, Meds, VS Vital Signs Date Time Temp Pulse Resp B/P (MAP) Pulse Ox O2 Delivery O2 Flow Rate FiO2 07/24/24 18:14 106 16 113/69 (84) 100 07/24/24 17:43 108 07/24/24 17:02 108 07/24/24 16:53 98.5 111 18 137/80 (99) 100 98.5 Lab Test 07/24/24 18:25 07/24/24 16:50 Range/Units Urine Color Yellow Yellow Urine Clarity Clear Clear Urine pH 7.0 5.0-9.0 Urine Specific [place] 1.019 1.001-1.035 Urine Protein Trace H Negative Urine Ketones Negative Negative Urine Blood 2+ H Negative /uL Urine Nitrite Negative Negative Urine Bilirubin Negative Negative Urine Urobilinogen Normal Negative mg/dL Urine Leukocyte Esterase Negative Negative /uL Urine RBC 15 0 - 4 /hpf Urine Microscopic WBC 2 0-5 /HPF Urine Squamous Epithelial Cells Few <5 /hpf Urine Bacteria None seen None Seen /hpf Urine Mucus Few None Seen Urine Glucose Normal Normal mg/dL Urine Test Negative Negative White Blood Count 5.3 4.4-10.8 10^3/uL Red Blood Count 2.46 L 4.0-5.20 10^6/uL Hemoglobin 5.6 *L 12.2-16.2 g/dL Hematocrit 18.3 L 36.0-46.0 % Mean Corpuscular Volume 74.5 L 80.0-100.0 fL Mean Corpuscular Hemoglobin 23.0 L 28.0-32.0 pg Mean Corpuscular Hemoglobin Concent 30.8 L 32.0-36.0 g/dL Red Cell Distribution Width 23.1 H 11.8-14.3 % Platelet Count 265 140-450 10^3/uL Mean Platelet Volume 7.8 6.9-10.8 fL Neutrophils (%) (Auto) 77.8 37.0-80.0 % Lymphocytes (%) (Auto) 15.4 10.0-50.0 % Monocytes (%) (Auto) 6.3 0.0-12.0 % Eosinophils (%) (Auto) 0.4 0.0-7.0 % Basophils (%) (Auto) 0.1 0.0-2.0 % Neutrophils # (Auto) 4.1 1.6-8.6 10 ^3/uL Lymphocytes # (Auto) 0.8 0.4-5.4 10 ^3/uL Monocytes # (Auto) 0.3 0-1.3 10 ^3/uL Eosinophils # (Auto) 0 0-0.8 10 ^3/uL Basophils # (Auto) 0 0-0.2 10 ^3/uL Nucleated Red Blood Cells 0.9 % Platelet Estimate Adequate Hypochromasia (manual) Marked Anisocytosis (manual) Slight Microcytosis Moderate Sodium Level 138 136-145 mmol/L Potassium Level 4.4 3.5-5.1 mmol/L Chloride Level 107 98-107 mmol/L Carbon Dioxide Level 22 20-31 mmol/L Anion Gap 9 5-15 Blood Urea Nitrogen 9 9-23 mg/dL Creatinine 0.94 0.550-1.02 mg/dL Glomerular Filtration Rate Calc 77 >90 mL/min BUN/Creatinine Ratio 9.6 L 10.0-20.0 Serum Glucose 100 74-106 mg/dL Calcium Level 9.5 8.7-10.4 mg/dL Total Bilirubin 0.3 0.2-1.0 mg/dL Aspartate Amino Transferase (AST) 8 L 13-40 U/L Alanine Aminotransferase (ALT) 14 7-40 U/L Alkaline Phosphatase 74 46-116 U/L Troponin I High Sensitivity 8 </=34 ng/L Total Protein 7.1 5.7-8.2 g/dL Albumin 4.2 3.2-4.8 g/dL Lipase 59 H 12-53 U/L Current Medications Medications (Trade) Dose Ordered Sig/Shara Route Start Time Stop Time Status Last Admin Acetaminophen (Tylenol Tablet) 1,000 mg ONCE ONCE PO 07/24/24 16:30 07/24/24 16:31 DC 07/24/24 18:15 X-Ray, Labs, Meds, VS Comment All studies performed the ED were evaluated by me personally. Laboratories confirmed a critical anemic state as well as elevated lipase indicative of a pancreatitis. Patient will be admitted for evaluation of significant anemic concerns as well as pain and fluid management of her pancreatitis event. Time of 1ST Reevaluation: 20:10 Reevaluation 1ST: Improved Consultation: PCP Patient Education/Counseling: Diagnosis, Treatment Family Education/Counseling: Diagnosis, Treatment, No Family Present Departure 1 Departure Time of Disposition: 20:10 Impression: Primary Impression: Anemia requiring transfusions Additional Impression: Pancreatitis Disposition: ADMITTED INPATIENT Condition: Stable Discharged With: Self, Relative Critical Care Note Critical Care Time?: No Stability Stability form required: No Heart Score Heart Score: Heart Score Response (Comments) Value History Moderate Suspicious 1 EKG Normal 0 Age <45 0 Risk Factors 1 or 2 risk factors 1 Troponin Normal limit 0 Total 2 I personally scribed for NATASHA LEDBETTER PAC ([email or web address]) on 07/24/24 at 17:43. Electronically submitted by Hollis Oviedo ([email or web address]). NATASHA LEDBETTER PAC Jul 24, 2024 17:43
[2024-07-24 18:04] LABS: Red Cell Distribution Width 23.1 % (11.8-14.3)
[2024-07-24 18:09] LABS: Hemoglobin 5.6 g/dL (12.2-16.2)
[2024-07-24 18:10] LABS: Alanine Aminotransferase 14 U/L (7-40); Albumin 4.2 g/dL (3.2-4.8); Alkaline Phosphatase 74 U/L (46-116); Anion Gap 9 (5-15); BUN/Creatinine Ratio 9.6 (10.0-20.0); Blood Urea Nitrogen 9 mg/dL (9-23); Calcium 9.5 mg/dL (8.7-10.4); Carbon Dioxide 22 mmol/L (20-31); Glucose 100 mg/dL (74-106); Potassium 4.4 mmol/L (3.5-5.1); Sodium 138 mmol/L (136-145); Total Protein 7.1 g/dL (5.7-8.2)
[2024-07-24 18:12] LABS: Aspartate Aminotransferase 8 U/L (13-40); Bilirubin, Total 0.3 mg/dL (0.2-1.0); Chloride 107 mmol/L (98-107)
[2024-07-24] MEDS: ACETAMINOPHEN 325 MG TAB PO ONE (18:15)
[2024-07-24 18:24] LABS: Lipase 59 U/L (12-53)
[2024-07-24 18:46] LABS: Urine Bacteria None Seen /hpf (None Seen)
[2024-07-24 19:06] LABS: Urine Blood 2+ /uL (Negative); Urine Clarity Clear (Clear); Urine Color Yellow (Yellow); Urine Mucus FEW (None Seen); Urine Protein, UAD TRACE (Negative); Urine Specific Gravity 1.019 (1.001-1.035); Urine Squamous Epithelial Cell FEW /hpf (<5); Urine Urobilinogen Normal (Negative); Urine WBC 2 /HPF (0-5)
[2024-07-24 19:56] LABS: Anisocytosis Slight; Hypochromia Marked; Platelet Estimate Adequate
--- NOTE | 2024-07-24 22:53 | DVHHPRES ---
History of Present Illness Resident Creating Document: KARINA WAYNE RESIDENT History of Present Illness 44-year-old female with past medical history of menorrhagia, anemia and iron- deficiency, hypertension, lupus presented with chief complaint of chest pain that started three days ago associated with lightheadedness, nausea, vomiting dizziness min shortness of breath. Patient mentioned that chest pain is pressure-like, substernal, nonradiating, increased with activity. She had six episodes of vomiting that started yesterday and after that she started having lightheadedness and dizziness. She also mentioned she has shortness of breath on walking around 30-50 feet but not on rest which correlates with NYHA class 2- 3. She denied any complaints of cough, diarrhea, hemoptysis, headache, dizziness. Past medical history Menorrhagia last menses three weeks ago which were heavy Iron-deficiency anemia Hypertension Lupus past surgical history Denied Medication history Hydroxychloroquine, nifedipine and iron tablets Social history Denied smoking, alcohol, marijuana or any other drug intake Family history Nonsignificant Review of Systems Review of Systems As described in HPI Allergies: Coded Allergies: NO KNOWN ALLERGIES (Unverified , 07/24/24) Exam Vital Signs Vital Signs Date Time Temp Pulse Resp B/P (MAP) Pulse Ox O2 Delivery O2 Flow Rate FiO2 07/24/24 21:41 98.9 98 17 108/63 (78) 100 98.9 Exam Examination General Appearance: Alert, Oriented X3, Cooperative, No acute distress HEENT: EOMI Respiratory: Clear to auscultation, Normal air movement Cardiovascular: Regular rate, Normal S1, Normal S2 Abdominal: Normal bowel sounds Extremities: No cyanosis, No edema, Normal pulses, No tenderness/swelling Skin: No rashes, No breakdown Neuro: Normal gait, Normal speech, Strength at 5/5 X4 ext, Normal tone, Sensation intact, Cranial nerves 3-12 NL, Reflexes 2+ Psych/Mental Status: Mental status NL, Mood NL Labs/Xrays Labs Test 07/24/24 18:25 07/24/24 16:50 Range/Units Urine Color Yellow Yellow Urine Clarity Clear Clear Urine pH 7.0 5.0-9.0 Urine Specific [place] 1.019 1.001-1.035 Urine Protein Trace H Negative Urine Ketones Negative Negative Urine Blood 2+ H Negative /uL Urine Nitrite Negative Negative Urine Bilirubin Negative Negative Urine Urobilinogen Normal Negative mg/dL Urine Leukocyte Esterase Negative Negative /uL Urine RBC 15 0 - 4 /hpf Urine Microscopic WBC 2 0-5 /HPF Urine Squamous Epithelial Cells Few <5 /hpf Urine Bacteria None seen None Seen /hpf Urine Mucus Few None Seen Urine Glucose Normal Normal mg/dL Urine Test Negative Negative White Blood Count 5.3 4.4-10.8 10^3/uL Red Blood Count 2.46 L 4.0-5.20 10^6/uL Hemoglobin 5.6 *L 12.2-16.2 g/dL Hematocrit 18.3 L 36.0-46.0 % Mean Corpuscular Volume 74.5 L 80.0-100.0 fL Mean Corpuscular Hemoglobin 23.0 L 28.0-32.0 pg Mean Corpuscular Hemoglobin Concent 30.8 L 32.0-36.0 g/dL Red Cell Distribution Width 23.1 H 11.8-14.3 % Platelet Count 265 140-450 10^3/uL Mean Platelet Volume 7.8 6.9-10.8 fL Neutrophils (%) (Auto) 77.8 37.0-80.0 % Lymphocytes (%) (Auto) 15.4 10.0-50.0 % Monocytes (%) (Auto) 6.3 0.0-12.0 % Eosinophils (%) (Auto) 0.4 0.0-7.0 % Basophils (%) (Auto) 0.1 0.0-2.0 % Neutrophils # (Auto) 4.1 1.6-8.6 10 ^3/uL Lymphocytes # (Auto) 0.8 0.4-5.4 10 ^3/uL Monocytes # (Auto) 0.3 0-1.3 10 ^3/uL Eosinophils # (Auto) 0 0-0.8 10 ^3/uL Basophils # (Auto) 0 0-0.2 10 ^3/uL Nucleated Red Blood Cells 0.9 % Platelet Estimate Adequate Hypochromasia (manual) Marked Anisocytosis (manual) Slight Microcytosis Moderate Sodium Level 138 136-145 mmol/L Potassium Level 4.4 3.5-5.1 mmol/L Chloride Level 107 98-107 mmol/L Carbon Dioxide Level 22 20-31 mmol/L Anion Gap 9 5-15 Blood Urea Nitrogen 9 9-23 mg/dL Creatinine 0.94 0.550-1.02 mg/dL Glomerular Filtration Rate Calc 77 >90 mL/min BUN/Creatinine Ratio 9.6 L 10.0-20.0 Serum Glucose 100 74-106 mg/dL Calcium Level 9.5 8.7-10.4 mg/dL Total Bilirubin 0.3 0.2-1.0 mg/dL Aspartate Amino Transferase (AST) 8 L 13-40 U/L Alanine Aminotransferase (ALT) 14 7-40 U/L Alkaline Phosphatase 74 46-116 U/L Troponin I High Sensitivity 8 </=34 ng/L Total Protein 7.1 5.7-8.2 g/dL Albumin 4.2 3.2-4.8 g/dL Lipase 59 H 12-53 U/L Assessment/Plan Assessment/Plan Assessment/plan # severe anemia requiring blood transfusion # iron-deficiency anemia, likely due to mennorhagia Hemoglobin level 5.6 2 units of PRBC ordered by the ER physician # chest pain, rule out ACS EKG, tropes # intractable vomiting, resolved Ondansetron p.r.n. Consider CT abdomen if persistent vomiting Elevated lipase level 59, but patient denied any abdominal pain, if concerns for pancreatitis, repeat lipase level and CT abdomen # hypertension Currently low normal blood pressure # SLE -pain meds joint pain Continue hydroxychloroquine DVT prophylaxis Patient is ambulatory, avoid Lovenox because of menorrhagia case discussed with Dr. Perdue Plan discussed with: Patient My Orders Orders - KARINA WAYNE RESIDENT Procedure Category Date Status Time Admit ADMIT 07/24/24 Transmitted 22:22 Stat Ekg For Chest DAVID 07/24/24 In Process Pain 22:22 Notify Of Changes DAVID 07/24/24 In Process From Base 22:22 Log Operations Coordinator For DAVID 07/24/24 In Process 24 Hours 22:22 Emergency Dysrhythmia DAVID 07/24/24 In Process Protocol 22:22 Rhythm Strips Once DAVID 07/24/24 In Process Every Shift 22:22 Oxygen By Nasal RT 07/24/24 Transmitted Cannula 22:22 Date of Service: Jul 24, 2024 Billing Provider: TARA PERDUE MD Common Visit Codes: [id number] INP/OBS CARE (HIGH) KARINA WAYNE RESIDENT Jul 24, 2024 22:53 TARA PERDUE MD Jul 25, 2024 19:36
[2024-07-24 23:37] VITALS: PULSE 96; RESP 14; O2SAT 99
[2024-07-25] VITALS (10 sets, daily range): BP systolic 109–120; BP diastolic 54–70; PULSE 73–100; RESP 15–73; TEMP 98–98.5; O2SAT 97–99
[2024-07-25] MEDS ORDERED: ONDANSETRON HCL 4 MG/2 ML VIAL IV PRN (01:00)
--- NOTE | 2024-07-25 01:45 | DVH ---
CHEST RADIOGRAPH Indication: SOB Technique: Single frontal view of the chest was obtained COMPARISON: None FINDINGS / IMPRESSION: Lines and Tubes: None Lungs: Mild bibasilar subsegmental atelectasis. No pulmonary edema. Pleura: No effusion. No pneumothorax. Cardiomediastinal contours: Mild cardiomegaly.
[2024-07-25] MEDS: HYDROcodone-ACET 10/325MG TAB PO ONE (02:01)
[2024-07-25 09:56] LABS: Basophils # (auto) 0 10 ^3/uL (0-0.2); Basophils % (auto) 0.3 % (0.0-2.0); Eosinophils # (auto) 0 10 ^3/uL (0-0.8); Eosinophils % (auto) 0.7 % (0.0-7.0); Hematocrit 25.3 % (36.0-46.0); Hemoglobin 8.2 g/dL (12.2-16.2); Lymphocytes # (auto) 0.6 10 ^3/uL (0.4-5.4); Lymphocytes % (auto) 14.7 % (10.0-50.0); Mean Corpuscular Hemoglobin 25.4 pg (28.0-32.0); Mean Corpuscular Hgb Conc. 32.3 g/dL (32.0-36.0); Mean Corpuscular Volume 78.6 fL (80.0-100.0); Monocytes # (auto) 0.2 10 ^3/uL (0-1.3); Monocytes % (auto) 5.5 % (0.0-12.0); Neutrophils # (auto) 3.4 10 ^3/uL (1.6-8.6); Neutrophils % (auto) 78.8 % (37.0-80.0); Nucleated Red Blood Cells % 0.2 %; Platelet Count (auto) 210 10^3/uL (140-450); Red Blood Cells 3.22 10^6/uL (4.0-5.20); White Blood Cell 4.4 10^3/uL (4.4-10.8)
[2024-07-25 09:58] LABS: Red Cell Distribution Width 20.9 % (11.8-14.3)
[2024-07-25 10:01] LABS: Potassium 4.2 mmol/L (3.5-5.1); Sodium 137 mmol/L (136-145)
[2024-07-25 10:02] LABS: Anion Gap 6 (5-15); Carbon Dioxide 23 mmol/L (20-31)
[2024-07-25 10:03] LABS: Calcium 8.9 mg/dL (8.7-10.4)
[2024-07-25 10:06] LABS: Chloride 108 mmol/L (98-107)
[2024-07-25 10:08] LABS: BUN/Creatinine Ratio 11.2 (10.0-20.0); Blood Urea Nitrogen 10 mg/dL (9-23); Magnesium 2.1 mg/dL (1.6-2.6)
[2024-07-25 10:23] LABS: Glucose 136 mg/dL (74-106)
--- NOTE | 2024-07-25 12:24 | DVHPN2 ---
Subjective The patient is seen and examined at bedside. The patient received blood transfusion Reviewed: Care Plan, H&P, Labs, Medications, Previous Orders, Radiology Changes from previous H/P or p: No Changes Objective Vitals Vital Signs Date Time Temp Pulse Resp B/P (MAP) Pulse Ox O2 Delivery O2 Flow Rate FiO2 07/25/24 10:00 86 20 124/71 (88) 97 07/25/24 08:30 Room Air* 0 21 07/25/24 08:00 98.4 98.4 Intake/Output Intake and Output 07/25/24 07:00 Intake Total 1355 ml Output Total 0 ml Balance 1355 ml Intake Oral 0 ml Blood Product 1200 ml Other 155 ml Output Urine Total 0 ml # Voids 1 General Appearance: Alert, Oriented X3, Cooperative, No acute distress HEENT: Atraumatic, PERRLA, EOMI, Mucous membr. moist/pink Neck: Supple Lungs: Clear to auscultation, Normal air movement Cardiovascular: Regular rate, Normal S1, Normal S2, No murmurs, Gallops, Rubs Abdomen: Normal bowel sounds, Soft, No tenderness Neuro: Cranial nerves 3-12 NL Psych/Mental Status: Mental status NL Medications Current Medications Medications Dose Ordered Sig/Shara Route Start Time Stop Time Status Last Admin Dose Admin Ondansetron HCl 4 mg Q4HPRN PRN IV 07/25/24 01:00 Acetaminophen 650 mg Q4HP PRN PO 07/25/24 01:30 Laboratory Results Laboratory Tests 07/25/24 09:29 Chemistry Test 07/24/24 16:50 07/25/24 09:29 Albumin 4.2 g/dL (3.2-4.8) Calcium Level 9.5 mg/dL (8.7-10.4) 8.9 mg/dL (8.7-10.4) Total Protein 7.1 g/dL (5.7-8.2) Magnesium Level 2.1 mg/dL (1.6-2.6) Lipid panel Test 07/24/24 16:50 Lipase 59 U/L (12-53) H LFT Test 07/24/24 16:50 Alanine Aminotransferase (ALT) 14 U/L (7-40) Alkaline Phosphatase 74 U/L (46-116) Aspartate Amino Transferase (AST) 8 U/L (13-40) L Total Bilirubin 0.3 mg/dL (0.2-1.0) Urinalysis Test 07/24/24 18:25 Urine Color Yellow (Yellow) Urine Clarity Clear (Clear) Urine pH 7.0 (5.0-9.0) Urine Specific [place] 1.019 (1.001-1.035) Urine Protein Trace (Negative) H Urine Ketones Negative (Negative) Urine Blood 2+ /uL (Negative) H Urine Nitrite Negative (Negative) Urine Bilirubin Negative (Negative) Urine Urobilinogen Normal mg/dL (Negative) Urine Leukocyte Esterase Negative /uL (Negative) Urine RBC 15 /hpf (0 - 4) Urine Microscopic WBC 2 /HPF (0-5) Urine Squamous Epithelial Cells Few /hpf (<5) Urine Bacteria None seen /hpf (None Seen) Urine Mucus Few (None Seen) Urine Glucose Normal mg/dL (Normal) Urine Test Negative (Negative) Labs and/or images reviewed: Labs reviewed by me Assessment/Plan Assessment/Plan # Severe anemia requiring blood transfusion # Iron-deficiency anemia, likely due to menorrhagia # Chest pain, secondary to severe anemia # Intractable vomiting, resolved # Hypertension # SLE Continuing current management. Continuing with blood transfusions. So far troponin level is negative. Patient's chest pain probable due to severe anemia. According to patient's inpatient daughter at bedside the patient is supposed to see an OBGYN for her menorrhagia however she was not see any Ob yet. Advised her to follow up as soon as she can. Discharge planning. This medical document was created using an electronic medical record system with [employer] direct computerized dictation system. Although this document has been carefully reviewed, there may still be some phonetic and typographical errors. These areas are purely typographical due to imperfections of the software programs, and do not reflect any compromise in the patient's medical care. Plan discussed with: Patient Date of Service: Jul 25, 2024 Billing Provider: NARINDER MEYERS MD Common Visit Codes: [id number] INP/OBS CARE(HIGH) NARINDER MEYERS MD Jul 25, 2024 12:24
--- NOTE | 2024-07-25 15:27 | ECG ---
[facility] Test Date: 2024-07-24 Test Time: 16:26:55 Pat Name: STEVE CLAYTON Department: ED Room: [address] [place] [address] 1 Gender: F Aerospace Assembler: CARISSA : 1980 Requested By: NATASHA LEDBETTER Order Number: [id number] Reading MD: Maksim Anderson Measurements Intervals [place] Rate: 108 P: 61 RI: 139 QRS: 46 QRSD: 82 T: 5 QT: 325 QTc: 436 Interpretive Statements Sinus tachycardia Borderline T abnormalities, anterior leads Electronically Signed On 07-30-2024 20:39:09 PDT by Maksim Anderson Please click the below link to view image of tracing.
--- NOTE | 2024-07-25 16:12 | DVHSR ---
APPROVED REPORT EXAM: Two-dimensional and M-mode echocardiogram with Doppler and color Doppler. Blood Pressure: 105/65 mmHg INDICATION CATHERINE RISK FACTORS Height: 62, Weight: 165 DIMENSIONS LVDd4.9 (3.8-5.7cm)LA (2D)4.9 (1.9-4.0cm)Aortic Root3.4 (2.0-3.7cm) LVDs3.1 (2.5-4.0cm)LA (MM) (1.9-4.0cm)Aortic Cusp Exc1.8 (1.5-2.0cm) EF (%) 66.0 (55-70%)Rt. Atrium3.7 (1.9-4.0cm)Asc. Aorta cm IVSd1.0 (0.7-1.1cm)RV (D) (1.8-2.4cm) PWd1.2 (0.7-1.1cm) Mitral Valve MitralMitral Stenosis E wave1.12m/sMV Mean GR.mmHg A wave1.20m/sMV Peak GR.86mmHg E/A ratio0.92D MVAcm2 DECEL [id number] 1/2 Dyfm40ct IVRTmsDop MVA3.76cm2 Aortic Valve Aortic ValveAortic Stenosis V11.17m/[place] Mean GR.7mmHg V21.75m/[place] Peak GR.12mmHg LVOT Diameter2.0 (1.8-2.4cm)Doppler AVA2.10cm2 Pulmonic Valve V21.25m/s Tricuspid Valve TR Velocity3.01m/s [id number] Other Information Technically limited study due to body habitus. Conclusion lvef 65% RV normal function left atirum enlarged mild no severe valve abnormalities noted
[2024-07-25] MEDS ORDERED: CHOL20007 PO (17:58)
[2024-07-25] MEDS ORDERED: FERR-7 PO (17:58)
[2024-07-25] MEDS ORDERED: NIFE1TAB31 PO (17:58)
[2024-07-25] MEDS: ACETAMINOPHEN 325 MG TAB PO PRN (20:44)
[2024-07-26 00:55] VITALS: BP 118/67; PULSE 86; RESP 15; TEMP 98.3; O2SAT 99
[2024-07-26 04:54] VITALS: BP 116/71; PULSE 68; RESP 15; TEMP 97.8; O2SAT 98
[2024-07-26 09:00] VITALS: BP 107/68; PULSE 71; RESP 18; TEMP 98; O2SAT 97
--- NOTE | 2024-07-26 11:06 | DVHDS2 ---
Discharge Summary Date of Admission Jul 24, 2024 at 22:22 Date of Discharge: Jul 26, 2024 Admitting Diagnosis # Severe anemia requiring blood transfusion # Iron-deficiency anemia, likely due to menorrhagia # Chest pain, secondary to severe anemia # Intractable vomiting, resolved # Hypertension # SLE Labs/Diagnostic Data: Laboratory Results Test 07/25/24 09:29 07/24/24 18:25 07/24/24 16:50 White Blood Count 4.4 10^3/uL (4.4-10.8) Red Blood Count 3.22 10^6/uL (4.0-5.20) Hemoglobin 8.2 g/dL (12.2-16.2) Hematocrit 25.3 % (36.0-46.0) Mean Corpuscular Volume 78.6 fL (80.0-100.0) Mean Corpuscular Hemoglobin 25.4 pg (28.0-32.0) Mean Corpuscular Hemoglobin Concent 32.3 g/dL (32.0-36.0) Red Cell Distribution Width 20.9 % (11.8-14.3) Platelet Count 210 10^3/uL (140-450) Mean Platelet Volume 7.7 fL (6.9-10.8) Neutrophils (%) (Auto) 78.8 % (37.0-80.0) Lymphocytes (%) (Auto) 14.7 % (10.0-50.0) Monocytes (%) (Auto) 5.5 % (0.0-12.0) Eosinophils (%) (Auto) 0.7 % (0.0-7.0) Basophils (%) (Auto) 0.3 % (0.0-2.0) Neutrophils # (Auto) 3.4 10 ^3/uL (1.6-8.6) Lymphocytes # (Auto) 0.6 10 ^3/uL (0.4-5.4) Monocytes # (Auto) 0.2 10 ^3/uL (0-1.3) Eosinophils # (Auto) 0 10 ^3/uL (0-0.8) Basophils # (Auto) 0 10 ^3/uL (0-0.2) Nucleated Red Blood Cells 0.2 % Sodium Level 137 mmol/L (136-145) Potassium Level 4.2 mmol/L (3.5-5.1) Chloride Level 108 mmol/L (98-107) Carbon Dioxide Level 23 mmol/L (20-31) Anion Gap 6 (5-15) Blood Urea Nitrogen 10 mg/dL (9-23) Creatinine 0.89 mg/dL (0.550-1.02) Glomerular Filtration Rate Calc 82 mL/min (>90) BUN/Creatinine Ratio 11.2 (10.0-20.0) Serum Glucose 136 mg/dL (74-106) Calcium Level 8.9 mg/dL (8.7-10.4) Magnesium Level 2.1 mg/dL (1.6-2.6) Troponin I High Sensitivity 19 ng/L (</=34) Urine Color Yellow (Yellow) Urine Clarity Clear (Clear) Urine pH 7.0 (5.0-9.0) Urine Specific [place] 1.019 (1.001-1.035) Urine Protein Trace (Negative) Urine Ketones Negative (Negative) Urine Blood 2+ /uL (Negative) Urine Nitrite Negative (Negative) Urine Bilirubin Negative (Negative) Urine Urobilinogen Normal mg/dL (Negative) Urine Leukocyte Esterase Negative /uL (Negative) Urine RBC 15 /hpf (0 - 4) Urine Microscopic WBC 2 /HPF (0-5) Urine Squamous Epithelial Cells Few /hpf (<5) Urine Bacteria None seen /hpf (None Seen) Urine Mucus Few (None Seen) Urine Glucose Normal mg/dL (Normal) Urine Test Negative (Negative) Platelet Estimate Adequate Hypochromasia (manual) Marked Anisocytosis (manual) Slight Microcytosis Moderate Total Bilirubin 0.3 mg/dL (0.2-1.0) Aspartate Amino Transferase (AST) 8 U/L (13-40) Alanine Aminotransferase (ALT) 14 U/L (7-40) Alkaline Phosphatase 74 U/L (46-116) Total Protein 7.1 g/dL (5.7-8.2) Albumin 4.2 g/dL (3.2-4.8) Lipase 59 U/L (12-53) Other Laboratory Tests 07/25/24 09:29 Brief Hx & Hospital Course: This is a 44 years old female with past medical history of menorrhagia, anemia due to menorrhagia in iron-deficiency, hypertension, SLE come to emergency department because of chest pain for three days with lightheadedness, nausea, vomiting, dizziness and shortness for breath. The patient was found to have severe anemia with hemoglobin of 5.6. The patient subsequently was transfused two packed red blood cell. Today her hemoglobin is stable. Regarding to her chest pain after blood transfusions the chest pain subsided. Troponin level is negative. Patient has probably had chest pain due to demand ischemia. Today her hemoglobin stable I am discharge her home. Advised her to follow up with the OBGYN at soonest she came for workup of menorrhalgia. Activity as tolerated. Diet per home diet. Physical exam: HEENT: Normocephalic atraumatic pupils equal react to light and accommodation. Extraocular muscles intact, conjunctiva pink, oropharynx moist, no thrush, no exudate. Lymphatic: No lymphadenopathy Cardiovascular exam: S1, S2 was heard. No murmurs, rubs, gallops Lung: Clear on auscultation bilaterally, no wheeze, rale, rhonchi. GI: Abdominal soft, nondistended, nontenderness, positive bowel sounds. Extremity: No crepitus, cyanosis, edema. Pedal pulses present bilateral. Full range of motion. Skin: Normal turgor, no rash. Psych: Alert, oriented x3. Neurology: No focal deficits, cranial nerve II to XII grossly intact. This medical document was created using an electronic medical record system with [employer] direct computerized dictation system. Although this document has been carefully reviewed, there may still be some phonetic and typographical errors. These areas are purely typographical due to imperfections of the software programs, and do not reflect any compromise in the patient's medical care. 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 Patient was counseled about treatment plan, medications, possible side effects, patientverbalized understanding. All questions were answered to the best of my ability. This discharge took greater then 30 minutes in planning, reviewing documentation, counseling the patient, and discussing with other team members." ASSESSMENT ASSESSMENT Assessment SYMPTOMATIC ANEMIA Date of Service: Jul 26, 2024 Billing Provider: NARINDER MEYESR MD Common Visit Codes: 14347-DWN/OBS DISCH DAY >30min NARINDER MEYERS MD Jul 26, 2024 11:06
[2024-07-26 12:06] LABS: Basophils # (auto) 0 10 ^3/uL (0-0.2); Eosinophils # (auto) 0.1 10 ^3/uL (0-0.8); Hemoglobin 8.7 g/dL (12.2-16.2); Lymphocytes # (auto) 0.8 10 ^3/uL (0.4-5.4); Monocytes # (auto) 0.3 10 ^3/uL (0-1.3); Neutrophils # (auto) 2.9 10 ^3/uL (1.6-8.6); Nucleated Red Blood Cells % 0.4 %; White Blood Cell 4.1 10^3/uL (4.4-10.8)
[2024-07-26 12:08] LABS: Basophils % (auto) 0.4 % (0.0-2.0); Eosinophils % (auto) 2.2 % (0.0-7.0); Hematocrit 27.6 % (36.0-46.0); Lymphocytes % (auto) 20.1 % (10.0-50.0); Mean Corpuscular Hemoglobin 24.6 pg (28.0-32.0); Mean Corpuscular Hgb Conc. 31.5 g/dL (32.0-36.0); Mean Corpuscular Volume 78.2 fL (80.0-100.0); Monocytes % (auto) 7.5 % (0.0-12.0); Neutrophils % (auto) 69.8 % (37.0-80.0); Platelet Count (auto) 214 10^3/uL (140-450); Red Blood Cells 3.53 10^6/uL (4.0-5.20); Red Cell Distribution Width 20.5 % (11.8-14.3)
[2024-07-26 13:00] VITALS: BP 121/72; PULSE 79; RESP 18; TEMP 97.9; O2SAT 98
== END 2024-07-26 13:50 | disposition home or self-care (01) | DRG 663 ==
LOC: ER 15:55 → MERGE 22:22 → OVERFLOW 22:22 → TELE-EAST 07-25 11:42
PROVIDERS: ADMIT Internal Medicine; ATTEND Internal Medicine
PROC: 30233N1 Transfusion of Nonautologous Red Blood Cells into Peripheral Vein, Percutaneous Approach (ICD-10-PCS; principal; 2024-07-25)
DX: D50.0 Iron deficiency anemia secondary to blood loss (chronic) (principal); I24.89 Other forms of acute ischemic heart disease; M32.9 Systemic lupus erythematosus, unspecified; I10 Essential (primary) hypertension; N92.0 Excessive and frequent menstruation with regular cycle; Z79.899 Other long term (current) drug therapy
CPT/HCPCS: 36415; 71045; 80048; 80053; 81001; 81025; 83690; 83735; 84484; 85025; 86850; 86900; 86901; 86920; 93005; 93306; G0378; J2405

== ENCOUNTER 2024-11-10 09:05 | Inpatient (IN) | payer MEDICAID ==
[2024-11-10] VITALS (14 sets, daily range): BP systolic 121–158; BP diastolic 59–93; PULSE 69–100; RESP 12–17; TEMP 97.8–98.6; O2SAT 98–100
[~2024-11-10] VITALS: Ht 157.5 cm; Wt 83.7 kg
[~2024-11-10 09:05] MED LIST changes: +CHOL20007 PO; +FERR-7 PO; +NIFE1TAB31 PO
--- NOTE | 2024-11-10 10:09 | ED.PDOC ---
HPI (NEURO) HPI Comments 44 y/o F, presents tot he ED for CC of generalized weakness. Patient states, she has been experiencing symptoms of generalized weakness with associated symptoms of dizziness and vomiting x3days. Patient reports, that she has had her menstrual period for an extended amount of time and has now been bleeding since, (10/16/24). Patient denies chills, sweats, headache, numbness, or blurred vision. No other associated symptoms, modifiers, recent injuries or sick contacts present at this time. Chief Complaint: General Weakness Time Seen by MD: 10:00 Primary Care Provider: UNKNOWN NAME Reviewed Notes: Nurses Notes, Medications, Allergies Information Source: Patient Mode of Arrival: Ambulatory Severity: Moderate Dizziness/Weakness Severity: Does not affect activitie Headache Severity: None Timing: Days Duration: Since onset Prehospital treatment: None Weakness Location: Generalized Onset: At rest Circumstances: Spontaneous Symptoms: Weakness Before: Normal During: Awake After: Normal Mentation History of: None Modifying factors: Nothing Associated Signs and Symptoms: Weakness Past Medical History PAST MEDICAL HISTORY: Denies Surgical History: TILT [employer]IVER History: Ectopic Family History Family History: Reviewed,noncontributory to illness Social History Smoker: Non-Smoker Alcohol: Denies ETOH Use Drugs: Denies Drug Use Lives In: Home Constitutional: reports: fatigue, weakness; denies: chills, diaphoresis, fever, malaise, sweats, others EENTM: denies: blurred vision, double vision, ear bleeding, ear discharge, ear drainage, ear pain, ear ringing, eye pain, eye redness, hearing loss, mouth pain, mouth swelling, nasal discharge, nose bleeding, nose congestion, nose pain, photophobia, tearing, throat pain, throat swelling, voice changes, others Respiratory: denies: cough, hemoptysis, orthopnea, SOB at rest, shortness of breath, SOB with excertion, stridor, wheezing, others Cardiovascular: denies: chest pain, dizzy spells, diaphoresis, Dyspnea on exertion, edema, irregular heart beat, left arm pain, lightheadedness, palpitations, PND, syncope, others Gastrointestinal: reports: vomiting; denies: abdomen distended, abdominal pain, blood streaked bowels, constipated, diarrhea, dysphagia, difficulty swallowing, hematemesis, melena, nausea, poor appetite, poor fluid intake, rectal bleeding, rectal pain, others Genitourinary: denies: abnormal vagina bleeding, burning, dyspareunia, dysuria, flank pain, frequency, hematuria, incontinence, pain, , vagina discharge, urgency, others Neurological: reports: dizziness; denies: fainting, headache, left sided numbness, left sided weakness, numbness, paresthesia, pre-existing deficit, right sided numbness, right sided weakness, seizure, speech problems, tingling, tremors, weakness, others Musculoskeletal: denies: back pain, gout, joint pain, joint swelling, muscle pain, muscle stiffness, neck pain, others Integumetry: denies: bruises, change in color, change in hair/nails, dryness, laceration, lesions, lumps, rash, wounds, others Allergic/Immunocompromised: denies: Difficulty Healing, Frequent Infections, Hives, Itching, others Hematologic/Lymphatic: denies: anemia, blood clots, easy bleeding, easy bruising, swollen glands, others Endocrine: denies: excessive hunger, excessive sweating, excessive thirst, excessive urination, flushing, intolerance to cold, intolerance to heat, unexplained weight gain, unexplained weight loss, others Psychiatric: denies: anxiety, bipolar disorder, depression, hopeless, panic disorder, schizophrenia, sleepless, suicidal, others All Other Systems: Reviewed and Negative Physical Exam General Appearance: No Apparent Distress, Normal HEENT: Normal ENT Inspection, Pharynx Normal Neck: Full Range of Motion, Non-Tender, Normal, Normal Inspection Respiratory: Chest Non-Tender, Lungs Clear, No Accessory Muscle Use, No Respiratory Distress, Normal Breath Sounds Cardiovascular: No Edema, No Murmur, No Gallop, Normal Peripheral Pulses, Regular Rate/Rhythm Breast Exam: Deferred Gastrointestinal: No Organomegaly, Non Tender, No Pulsatile Mass, Normal Bowel Sounds, Soft Genitalia: Deferred Pelvic: Deferred Rectal: Deferred Extremities: No calf tenderness, Normal capillary refill, Normal inspection, Normal range of motion, Non-tender, No pedal edema Musculoskeletal : Apperance: Normal Neurologic: Alert, digital product manager II-XII nml as Tested, No Motor Deficits, Normal Affect, Normal Mood, No Sensory Deficits Cerebellar Function: Normal Reflexes: Normal Skin: Dry, Normal Color, Warm Lymphatic: No Adenopathy Was a procedure done? Was a procedure done?: No Differential Diagnosis (SZ) Seizure: N/A General Weakness: Anemia, Dehydration, Electrolyte imbalance Headache: N/A X-Ray, Labs, Meds, VS Vital Signs Date Time Temp Pulse Resp B/P (MAP) Pulse Ox O2 Delivery O2 Flow Rate FiO2 11/10/24 16:33 98.6 78 16 140/74 98.6 11/10/24 16:00 98.3 86 16 135/68 (90) 98 98.3 11/10/24 15:45 97.8 82 17 121/74 97.8 11/10/24 15:14 84 11/10/24 15:03 98.0 84 13 126/63 98.0 11/10/24 15:00 84 14 126/63 (84) 100 11/10/24 14:40 98.1 93 17 133/67 98.1 11/10/24 14:00 81 16 133/67 (89) 100 11/10/24 13:00 85 14 132/62 (85) 100 11/10/24 12:30 78 15 127/70 11/10/24 12:16 97.9 94 18 127/70 (89) 100 97.9 11/10/24 11:57 84 15 134/68 11/10/24 10:00 99 12 137/82 (100) 100 11/10/24 09:52 98.3 100 15 127/73 (91) 100 98.3 11/10/24 09:52 100 15 100 Room Air* 0 21 11/10/24 09:30 98.4 100 18 152/77 (102) 100 98.4 Lab Test 11/10/24 11:44 11/10/24 09:36 11/10/24 09:33 Range/Units White Blood Count 4.9 4.4-10.8 10^3/uL Red Blood Count 1.99 L 4.0-5.20 10^6/uL Hemoglobin 3.9 *L 12.2-16.2 g/dL Hematocrit 13.1 L 36.0-46.0 % Mean Corpuscular Volume 65.9 L 80.0-100.0 fL Mean Corpuscular Hemoglobin 19.8 L 28.0-32.0 pg Mean Corpuscular Hemoglobin Concent 30.1 L 32.0-36.0 g/dL Red Cell Distribution Width 21.6 H 11.8-14.3 % Platelet Count 150 140-450 10^3/uL Mean Platelet Volume 7.8 6.9-10.8 fL Neutrophils (%) (Auto) 81.7 H 37.0-80.0 % Lymphocytes (%) (Auto) 11.2 10.0-50.0 % Monocytes (%) (Auto) 5.5 0.0-12.0 % Eosinophils (%) (Auto) 1.2 0.0-7.0 % Basophils (%) (Auto) 0.4 0.0-2.0 % Neutrophils # (Auto) 4.0 1.6-8.6 10 ^3/uL Lymphocytes # (Auto) 0.6 0.4-5.4 10 ^3/uL Monocytes # (Auto) 0.3 0-1.3 10 ^3/uL Eosinophils # (Auto) 0.1 0-0.8 10 ^3/uL Basophils # (Auto) 0 0-0.2 10 ^3/uL Nucleated Red Blood Cells 0.6 % Platelet Estimate Adequate Hypochromasia (manual) Marked Anisocytosis (manual) Slight Microcytosis Marked Prothrombin Time 11.4 9.3-11.8 sec Prothrombin Time INR 1.08 0.9-1.15 Activated Partial Thromboplast Time 21.9 L 24.5-34.5 SEC Sodium Level 140 136-145 mmol/L Potassium Level 4.3 3.5-5.1 mmol/L Chloride Level 109 H 98-107 mmol/L Carbon Dioxide Level 22 20-31 mmol/L Anion Gap 9 5-15 Blood Urea Nitrogen 13 9-23 mg/dL Creatinine 0.89 0.550-1.02 mg/dL Glomerular Filtration Rate Calc 82 >90 mL/min BUN/Creatinine Ratio 14.6 10.0-20.0 Serum Glucose 103 74-106 mg/dL Lactic Acid Level 1.3 0.4-2.0 mmol/L Calcium Level 8.9 8.7-10.4 mg/dL Total Bilirubin 0.2 0.2-1.0 mg/dL Aspartate Amino Transferase (AST) 8 L 13-40 U/L Alanine Aminotransferase (ALT) < 9 7-40 U/L Alkaline Phosphatase 61 46-116 U/L Total Protein 6.0 5.7-8.2 g/dL Albumin 3.6 3.2-4.8 g/dL Beta HCG, Quantitative 0.6 L 1.5-4.2 mIU/mL Urine Color Light-yellow Yellow Urine Clarity Clear Clear Urine pH 7.0 5.0-9.0 Urine Specific [place] 1.040 H 1.001-1.035 Urine Protein Negative Negative Urine Ketones Negative Negative Urine Blood 2+ H Negative /uL Urine Nitrite Negative Negative Urine Bilirubin Negative Negative Urine Urobilinogen Normal Negative mg/dL Urine Leukocyte Esterase Negative Negative /uL Urine RBC 89 0 - 4 /hpf Urine Microscopic WBC 3 0-5 /HPF Urine Squamous Epithelial Cells Few <5 /hpf Urine Bacteria None seen None Seen /hpf Urine Glucose Normal Normal mg/dL POC Glucose 99 70-106 mg/dl Microbiology Date/Time Source Procedure Growth Status 11/10/24 11:44 Blood Blood Culture - Preliminary NO GROWTH AFTER 48 HOURS OF INCUBATION. Resulted 11/10/24 11:30 Blood Blood Culture - Preliminary NO GROWTH AFTER 48 HOURS OF INCUBATION. Resulted [place] [id number] Ph: [phone] DIAGNOSTIC IMAGING Diagnostic Imaging Report : [id number] Signed PATIENT: STEVE CLAYTON ACCT: [id number] UNIT: [id number] : 1980 LOC: ER ROOM / BED: / AGE / SEX: 44 / F ADM STATUS: REG ER SERVICE 1104 ORDERING PHYSICIAN: MILE ROBERTSON MD PROCEDURE(s): CXRP - CHEST PORTABLE REASON: ams ORDER NUMBER(s): [id number], ACCESSION NUMBER(s): [id number] CHEST RADIOGRAPH Indication: ams Technique: Single frontal view of the chest was obtained COMPARISON: None FINDINGS: Lines and Tubes: None Lungs: Clear Pleura: No effusion. No pneumothorax. Cardiomediastinal contours: Cardiomegaly Bones: Unremarkable IMPRESSION: No acute disease. ATED BY: ELIER ALVARENGA MD DICTATED DATE/TIME: 11/10/24 115 SIGNED BY: ELIER ALVARENGA MD SIGNED DATE/TIME: 11/10/24 115 CC: Time of 1ST Reevaluation: 10:30 Reevaluation 1ST: Unchanged Patient Education/Counseling: Diagnosis, Treatment Family Education/Counseling: No Family Present Departure 1 Departure Time of Disposition: 18:21 (Symptomatic anemia we will admit patient for transfusion and further workup.) Impression: Primary Impression: Symptomatic anemia Additional Impression: Generalized weakness Disposition: 09 ADMITTED INPATIENT Admit to: Med Surg Condition: Serious e-Prescriptions Hydrocodone-Acetaminophen (Hydrocodone/Acetaminophen 5-325 mg) 1 Tab Tab 1 TAB PO TID PRN for 6 Days, #18 TAB Prov: LEIGHA VILLEGAS MD 11/12/24 Critical Care Note Critical Care Time?: Yes Critical care comment: Symptomatic anemia Authorized and Performed by: Mile Robertson MD Total critical care time: Approximately 44 minutes Due to a high probability of clinically significant, life threatening deterioration, the patient required my highest level of preparedness to intervene emergently and I personally spent this critical care time directly and personally managing the patient. This critical care time included obtaining a history; examining the patient; pulse oximetry; ordering and review of studies; arranging urgent treatment with development of a management plan; evaluation of patient's response to treatment; frequent reassessment; and, discussions with other providers. This critical care time was performed to assess and manage the high probability of imminent, life-threatening deterioration that could result in multi-organ failure. It was exclusive of separately billable procedures and treating other patients and teaching time. Please see my other sections and the rest of the note for further information on patient assessment and treatment. Stability Stability form required: No Heart Score Heart Score: Heart Score Response (Comments) Value History N/A 0 EKG N/A 0 Age N/A 0 Risk Factors N/A 0 Troponin N/A 0 Total 0 I personally scribed for MILE ROBERTSON MD ([email or web address]) on 11/10/24 at 10:09. Electronically submitted by Isatu Clayton ([email or web address]). I personally scribed for MILE ROBERTSON MD ([email or web address]) on 11/10/24 at 12:31. Electronically submitted by Isatu Clayton ([email or web address]). MILE ROBERTSON MD Nov 10, 2024 10:09
[2024-11-10] MEDS: VANCOMYCIN 1GM/200ML PM 200 ML IV ONE (11:19)
[2024-11-10] MEDS: LACTATED RINGER'S 1,500 ML IV ONE (11:19)
[2024-11-10] MEDS: MORPHINE SULFATE 4 MG/ML SYR/VIAL IV ONE (11:57)
--- NOTE | 2024-11-10 12:02 | DVH ---
CHEST RADIOGRAPH Indication: ams Technique: Single frontal view of the chest was obtained COMPARISON: None FINDINGS: Lines and Tubes: None Lungs: Clear Pleura: No effusion. No pneumothorax. Cardiomediastinal contours: Cardiomegaly Bones: Unremarkable IMPRESSION: No acute disease.
[2024-11-10 12:03] LABS: Hematocrit 13.1 % (36.0-46.0); Mean Corpuscular Hemoglobin 19.8 pg (28.0-32.0); Mean Corpuscular Volume 65.9 fL (80.0-100.0); Nucleated Red Blood Cells % 0.6 %
[2024-11-10 12:12] LABS: Anisocytosis Slight; Hemoglobin 3.9 g/dL (12.2-16.2)
[2024-11-10 12:16] LABS: Albumin 3.6 g/dL (3.2-4.8); Alkaline Phosphatase 61 U/L (46-116); Anion Gap 9 (5-15); BUN/Creatinine Ratio 14.6 (10.0-20.0); Blood Urea Nitrogen 13 mg/dL (9-23); Calcium 8.9 mg/dL (8.7-10.4); Carbon Dioxide 22 mmol/L (20-31); Glucose 103 mg/dL (74-106); Potassium 4.3 mmol/L (3.5-5.1); Sodium 140 mmol/L (136-145); Total Protein 6.0 g/dL (5.7-8.2)
[2024-11-10 12:17] LABS: Alanine Aminotransferase < 9 U/L (7-40); Bilirubin, Total 0.2 mg/dL (0.2-1.0); Chloride 109 mmol/L (98-107)
[2024-11-10 12:32] LABS: INR 1.08 (0.9-1.15); Partial Thromboplastin Time 21.9 SEC (24.5-34.5); Prothrombin Time 11.4 sec (9.3-11.8)
[2024-11-10] MEDS: IOHEXOL 300 MG/ML 100ML BOTTLE IJ ONE (13:12)
[2024-11-10] MEDS: CEFEPIME 1GM/ 50ML 50 ML IV ONE (13:12)
--- NOTE | 2024-11-10 13:25 | DVH ---
Exam: CT CT AB PEL WITH IV CON ONLY History: abdominal pain, bleeding COMPARISON: None Technique: Multidetector spiral CT of the abdomen and pelvis was performed from lung bases to pubic symphysis. Intravenous contrast was administered during this examination. Portal venous imaging was obtained. Axial, coronal and sagittal multiplanar reformats were performed by the technologist on a separate workstation. Radiation Dose : Abdomen/Pelvis: CTDIvol 20.08 mGy, DLP 1106.16 mGy*cm. CONTRAST: Type of contrast: Omni 300 Contrast injected: 100 mL Findings: Lung Bases: Atelectasis and consolidation in the lung bases. Liver: The liver is normal in size. No focal lesions. Normal hepatic vascular enhancement. Gallbladder and biliary Tree: Unremarkable Spleen: Unremarkable Pancreas: The pancreas is normal in appearance without focal lesions or abnormal enhancement. Adrenal Glands: Unremarkable Kidneys: No hydronephrosis. Bladder: Unremarkable Bowel: The stomach is grossly normal in appearance. Small bowel and colon are normal in caliber and d istribution. Normal appendix is visualized in the right lower quadrant without findings of appendicit is. Ascites: Absent Lymphadenopathy: No mesenteric, retroperitoneal or periportal lymphadenopathy. Abdominal wall and Mesentery: Unremarkable. Vasculature: The visualized abdominal aorta is normal in size and caliber. Abdominal and pelvic vess els demonstrate normal enhancement. Pelvic Organs: Fluid in the vagina. Right ovarian cyst. Musculoskeletal: No aggressive focal bony lesions, acute fractures or dislocation. IMPRESSION: 1. No acute abdominal or pelvic finding. Fluid in the vagina. Clinical correlation is recommended. A telectasis and consolidation in the lung bases. Consider dedicated chest CT. Radiation optimization: All CT scans at this facility use at least one of these dose optimization erlin hniques: Automated exposure control mA and/or kV adjustment per patient size (includes targeted exams where dose is matched to clinical indication) or iterative reconstruction. HS:Y
[2024-11-10] MEDS: ONDANSETRON HCL 4 MG/2 ML VIAL IV ONE (13:58)
[2024-11-10] MEDS: PANTOPRAZOLE 40 MG/10 ML VIAL INJ IV ONE (16:42)
[2024-11-10] MEDS: SODIUM CHLORIDE 0.9% 1,000 ML IV SCH (16:42)
--- NOTE | 2024-11-10 16:49 | DVHHP2 ---
History of Present Illness Reason for Visit: Symptomatic anemia History of Present Illness The patient is a 44-year-old female with past medical history of atopic who presented to [facility] ED with complaint of generalized weakness associated with dizziness and shortness of breaths for the past 3 days. Patient reports, that she has had her menstrual period for an extended amount of time and has now been bleeding since, (10/16/24). Patient was seen and evaluated in the ED, laboratory data shows WBC 4.9, hemoglobin 3.9, hematocrit 13.1, platelets 150, sodium 140, potassium 4.3, BUN 13, creatinine 0.89, glucose 103, lactic acid 1.3, blood pressure 122/70, heart rate 78, temperature 97.9 F, O2 saturation 94% on oxygen. CT of the abdomen/pelvis showed no acute abdominal or pelvic finding, noted fluid in the vagina. Patient was found to have blood loss anemia, please see medication orders section in the computer. On my assessment, patient denied chest pain, no headache, no diaphoresis, currently on oxygen, no abdominal pain, no diarrhea, no nausea, no vomiting, no fever, no chills. Patient was admitted for further evaluation and medical management. Past Medical History Ectopic Past Surgical History Family History Reviewed, noncontributory to the management of this case. Past Social History The patient lives at home, denies smoking, alcohol or illicit drugs abuse. Review of Systems Constitutional: Yes: Weakness, Other (Fatigue); No: Fever, Chills, Sweats, Malaise Eyes: No: Pain, Vision change, Conjunctivae inflammation, Eyelid inflammation, Other, Redness ENT: No: Ear pain, Ear discharge, Nose pain, Nose discharge, Nose congestion, Mouth pain, Mouth swelling, Throat pain, Throat swelling, Other Respiratory: Shortness of breath; No: Cough, Dry, SOB with excertion, Wheezing, Hemoptysis, Pleuritic Pain, Sputum, Wheezing, Other Cardiovascular: No: Chest Pain, Palpitations, Orthopnea, Paroxysmal Noc. Dyspnea, Edema, Lt Headedness, Other Gastrointestinal: No: Nausea, Vomiting, Abdominal Pain, Diarrhea, Constipation, Melena, Hematochezia, Other Genitourinary: No Dysuria, No Frequency, No Incontinence, No Hematuria, No Retention, No Other Musculoskeletal: No: other, neck pain, shoulder pain, arm pain, back pain, hand pain, leg pain, foot pain Skin: No: Rash, Lesions, Jaundice, Bruising, Other Neurological: Other (Dizziness); No: Weakness, Numbness, Incoordination, Change in speech, Confusion, Seizures Allergies: Coded Allergies: NO KNOWN ALLERGIES (Unverified , 12/13/21) Medications Current Medications Medications Dose Ordered Sig/Shara Route Start Time Stop Time Status Last Admin Dose Admin Cefepime HCl 50 ml @ 12.5 mls/hr Q8HR IV 11/10/24 22:00 Pantoprazole Sodium 40 mg DAILY IV 11/11/24 10:00 Sodium Chloride 1,000 ml @ 60 mls/hr [id number] IV 11/10/24 14:30 11/10/24 16:42 60 MLS/HR Acetaminophen/ Hydrocodone Bitart 1 tab Q4HP PRN PO 11/10/24 14:30 Ondansetron HCl 4 mg Q4HP PRN IV 11/10/24 14:30 Docusate Sodium 100 mg BIDPRN PRN PO 11/10/24 14:30 Acetaminophen 650 mg Q6HP PRN PO 11/10/24 14:30 Exam Vital Signs Vital Signs Date Time Temp Pulse Resp B/P (MAP) Pulse Ox O2 Delivery O2 Flow Rate FiO2 11/10/24 16:33 98.6 78 16 140/74 98.6 11/10/24 15:00 100 11/10/24 09:52 Room Air* 0 21 General Appearance: Alert, Oriented X3, Cooperative, No acute distress HEENT: Atraumatic, PERRLA, EOMI Respiratory: Clear to auscultation, Normal air movement Cardiovascular: Regular rate, Normal S1, Normal S2, No murmurs Abdominal: Normal bowel sounds, Soft, No tenderness, No hepatospenomegaly, No masses Extremities: No clubbing, No cyanosis, No edema, Normal pulses, No tenderness/swelling Skin: No rashes, No breakdown, No significant lesion Neuro: Normal speech, Normal tone, Sensation intact, Cranial nerves 3-12 NL, Reflexes 2+, Other (Generalized weakness) Psych/Mental Status: Mental status NL, Mood NL Labs/Xrays Labs Test 11/10/24 11:44 11/10/24 09:33 Range/Units White Blood Count 4.9 4.4-10.8 10^3/uL Red Blood Count 1.99 L 4.0-5.20 10^6/uL Hemoglobin 3.9 *L 12.2-16.2 g/dL Hematocrit 13.1 L 36.0-46.0 % Mean Corpuscular Volume 65.9 L 80.0-100.0 fL Mean Corpuscular Hemoglobin 19.8 L 28.0-32.0 pg Mean Corpuscular Hemoglobin Concent 30.1 L 32.0-36.0 g/dL Red Cell Distribution Width 21.6 H 11.8-14.3 % Platelet Count 150 140-450 10^3/uL Mean Platelet Volume 7.8 6.9-10.8 fL Neutrophils (%) (Auto) 81.7 H 37.0-80.0 % Lymphocytes (%) (Auto) 11.2 10.0-50.0 % Monocytes (%) (Auto) 5.5 0.0-12.0 % Eosinophils (%) (Auto) 1.2 0.0-7.0 % Basophils (%) (Auto) 0.4 0.0-2.0 % Neutrophils # (Auto) 4.0 1.6-8.6 10 ^3/uL Lymphocytes # (Auto) 0.6 0.4-5.4 10 ^3/uL Monocytes # (Auto) 0.3 0-1.3 10 ^3/uL Eosinophils # (Auto) 0.1 0-0.8 10 ^3/uL Basophils # (Auto) 0 0-0.2 10 ^3/uL Nucleated Red Blood Cells 0.6 % Platelet Estimate Adequate Hypochromasia (manual) Marked Anisocytosis (manual) Slight Microcytosis Marked Prothrombin Time 11.4 9.3-11.8 sec Prothrombin Time INR 1.08 0.9-1.15 Activated Partial Thromboplast Time 21.9 L 24.5-34.5 SEC Sodium Level 140 136-145 mmol/L Potassium Level 4.3 3.5-5.1 mmol/L Chloride Level 109 H 98-107 mmol/L Carbon Dioxide Level 22 20-31 mmol/L Anion Gap 9 5-15 Blood Urea Nitrogen 13 9-23 mg/dL Creatinine 0.89 0.550-1.02 mg/dL Glomerular Filtration Rate Calc 82 >90 mL/min BUN/Creatinine Ratio 14.6 10.0-20.0 Serum Glucose 103 74-106 mg/dL Lactic Acid Level 1.3 0.4-2.0 mmol/L Calcium Level 8.9 8.7-10.4 mg/dL Total Bilirubin 0.2 0.2-1.0 mg/dL Aspartate Amino Transferase (AST) 8 L 13-40 U/L Alanine Aminotransferase (ALT) < 9 7-40 U/L Alkaline Phosphatase 61 46-116 U/L Total Protein 6.0 5.7-8.2 g/dL Albumin 3.6 3.2-4.8 g/dL POC Glucose 99 70-106 mg/dl PATIENT: STEVE CLAYTON ACCT: [id number] UNIT: [id number] : 1980 LOC: ER ROOM / BED: / AGE / SEX: 44 / F ADM STATUS: REG ER SERVICE 1236 ORDERING PHYSICIAN: MILE ROBERTSON MD PROCEDURE(s): ABPLIV - CT AB PEL WITH IV CON ONLY REASON: abdominal pain, bleeding ORDER NUMBER(s): [id number], ACCESSION NUMBER(s): [id number] Exam: CT CT AB PEL WITH IV CON ONLY History: abdominal pain, bleeding COMPARISON: None Technique: Multidetector spiral CT of the abdomen and pelvis was performed from lung bases to pubic symphysis. Intravenous contrast was administered during this examination. Portal venous imaging was obtained. Axial, coronal and sagittal multiplanar reformats were performed by the technologist on a separate workstation. Radiation Dose : Abdomen/Pelvis: CTDIvol 20.08 mGy, DLP 1106.16 mGy*cm. CONTRAST: Type of contrast: Omni 300 Contrast injected: 100 mL Findings: Lung Bases: Atelectasis and consolidation in the lung bases. Liver: The liver is normal in size. No focal lesions. Normal hepatic vascular enhancement. Gallbladder and biliary Tree: Unremarkable Spleen: Unremarkable Pancreas: The pancreas is normal in appearance without focal lesions or abnormal enhancement. Adrenal Glands: Unremarkable Kidneys: No hydronephrosis. Bladder: Unremarkable Bowel: The stomach is grossly normal in appearance. Small bowel and colon are normal in caliber and distribution. Normal appendix is visualized in the right lower quadrant without findings of appendicitis. Ascites: Absent Lymphadenopathy: No mesenteric, retroperitoneal or periportal lymphadenopathy. Abdominal wall and Mesentery: Unremarkable. Vasculature: The visualized abdominal aorta is normal in size and caliber. Abdominal and pelvic vessels demonstrate normal enhancement. Pelvic Organs: Fluid in the vagina. Right ovarian cyst. Musculoskeletal: No aggressive focal bony lesions, acute fractures or dislocation. IMPRESSION: 1. No acute abdominal or pelvic finding. Fluid in the vagina. Clinical correlation is recommended. Atelectasis and consolidation in the lung bases. Consider dedicated chest CT. ORDERING PHYSICIAN: MILE ROBERTSON MD PROCEDURE(s): CXRP - CHEST PORTABLE REASON: ams ORDER NUMBER(s): [id number], ACCESSION NUMBER(s): [id number] CHEST RADIOGRAPH Indication: ams Technique: Single frontal view of the chest was obtained COMPARISON: None FINDINGS: Lines and Tubes: None Lungs: Clear Pleura: No effusion. No pneumothorax. Cardiomediastinal contours: Cardiomegaly Bones: Unremarkable IMPRESSION: No acute disease. SEPSIS Sepsis Screen Date sepsis recognized/suspect: Nov 10, 2024 Time Sepsis recognized/suspect: 951 Recent Procedure: No On Antibiotic Therapy: No Respiratory Rate >20: No Heart Rate >90: Yes Temp<36 C (96.8 F) or >38.3 C: No SBP <90 or MAP <65 mmHG: No New Acute Mental Status Change: No Is the patient on CPAP, BIPAP,: No Physician Orders Urinalysis (11/10/24 11:04) Chest Portable (11/10/24 11:04) Accucheck (11/10/24 11:04) Blood Culture (11/10/24 11:04) Cefepime 1gm/ 50ml (Maxipime 1gm/50ml) (11/10/24 22:00) Notify Md If Map <65 Or Bp<90 (11/10/24 11:04) If Map<65 Start Vasopressor (11/10/24 11:04) Sepsis Reassesment After Fluid (11/10/24 12:04) Type And Screen (11/10/24 12:14) Ct Ab Pel With Iv Con Only (11/10/24 12:36) Pantoprazole (Protonix) (11/11/24 10:00) * Allergy Physician Consultation (11/10/24 14:28) Allergies (11/10/24 14:28) Code Status (11/10/24 14:28) Sodium Chloride 0.9% (11/10/24 14:30) Oxygen Per Hour (11/10/24 14:28) Hydrocodone-Acet 5/325mg Tab ([place] 32 (11/10/24 14:30) Ondansetron Hcl (Zofran) (11/10/24 14:30) Docusate Sodium Capsule (Colace Capsule) (11/10/24 14:30) Fall Risk Precautions In Place QSHIFT (11/10/24 14:28) Complete Blood Count (11/11/24 04:00) Comprehensive Metabolic Panel (11/11/24 04:00) Cardiac Diet-2gna,Lofat,Lochol (11/10/24 Dinner) Condition: Serious (11/10/24 14:28) Acetaminophen Tablet (Tylenol Tablet) (11/10/24 14:30) Maintain Bed Rest (11/10/24 14:28) Sequential Compression Device (11/10/24 ) Admit (11/10/24 16:47) Nitroglycerin Sublingual (Ntrostat Subli (11/10/24 17:00) Morphine Sulfate Injection (11/10/24 17:00) Stat Ekg For Chest Pain (11/10/24 16:47) Notify Md Of Changes From Base (11/10/24 16:47) Oracle Database Consultant For 24 Hours (11/10/24 16:47) Emergency Dysrhythmia Protocol (11/10/24 16:47) Rhythm Strips Once Every Shift (11/10/24 16:47) Oxygen By Nasal Cannula (11/10/24 16:47) Vital Signs Date Time Temp Pulse Resp B/P (MAP) Pulse Ox O2 Delivery O2 Flow Rate FiO2 11/10/24 16:33 98.6 78 16 140/74 98.6 11/10/24 15:45 97.8 82 17 121/74 97.8 11/10/24 15:14 84 11/10/24 15:03 98.0 84 13 126/63 98.0 11/10/24 15:00 84 14 126/63 (84) 100 11/10/24 14:40 98.1 93 17 133/67 98.1 11/10/24 14:00 81 16 133/67 (89) 100 11/10/24 13:00 85 14 132/62 (85) 100 11/10/24 12:30 78 15 127/70 11/10/24 12:16 97.9 94 18 127/70 (89) 100 97.9 11/10/24 11:57 84 15 134/68 11/10/24 10:00 99 12 137/82 (100) 100 11/10/24 09:52 98.3 100 15 127/73 (91) 100 98.3 11/10/24 09:52 100 15 100 Room Air* 0 21 11/10/24 09:30 98.4 100 18 152/77 (102) 100 98.4 Laboratory Tests Test 11/10/24 11:44 Lactic Acid Level 1.3 mmol/L (0.4-2.0) White Blood Count 4.9 10^3/uL (4.4-10.8) Medications Medications Dose Ordered Sig/Shara Route Start Time Stop Time Status Last Admin Dose Admin Cefepime HCl 50 ml @ 50 mls/hr ONCE ONCE IV 11/10/24 11:45 11/10/24 12:44 DC 11/10/24 13:12 50 MLS/HR Lactated Ringer's 1,500 ml @ 1,500 mls/hr ONCE ONCE IV 11/10/24 11:15 11/10/24 12:14 DC 11/10/24 11:19 1,500 MLS/HR Morphine Sulfate 4 mg ONCE ONCE IV 11/10/24 11:45 11/10/24 11:47 DC 11/10/24 11:57 4 MG Ondansetron HCl 4 mg ONCE ONCE IV 11/10/24 14:00 11/10/24 14:01 DC 11/10/24 13:58 4 MG Pantoprazole Sodium 40 mg ONCE ONCE IV 11/10/24 14:30 11/10/24 15:22 DC 11/10/24 16:42 40 MG Sodium Chloride 1,000 ml @ 60 mls/hr [id number] IV 11/10/24 14:30 11/10/24 16:42 60 MLS/HR Vancomycin HCl 200 ml @ 200 mls/hr ONCE ONCE IV 11/10/24 11:15 11/10/24 12:14 DC 11/10/24 11:47 200 MLS/HR Assessment/Plan Assessment/Plan Symptomatic anemia Generalized weakness Plan 1. Admit to telemetry unit 2. Breathing treatment 3. Pain control management 4. Management of fluids and electrolytes 5. Consultation for hospitalist 6. Diagnostic tests abdomen/pelvis CT 7. DVT prophylaxis-on SCDs 8. Transfused 2 units PRBC 9. Repeat labs CBC, CMP in a.m. 10. Treatment plan discussed with patient and RN. Patient verbalized understanding. Plan discussed with: Patient, Other (RN) My Orders Orders - ABENA QUIROGA DNP Procedure Category Date Status Time Pantoprazole PHA 11/11/24 In Process (Protonix) 10:00 * Allergy Physician Consultation CONS 11/10/24 Transmitted 14:28 Allergies DAVID 11/10/24 In Process 14:28 Code Status CODE 11/10/24 Transmitted 14:28 Sodium Chloride 0.9% PHA 11/10/24 In Process 14:30 Oxygen Per Hour RT 11/10/24 Transmitted 14:28 Hydrocodone-Acet PHA 11/10/24 In Process 5/325mg Tab ([place] 14:30 Ondansetron Hcl PHA 11/10/24 In Process (Zofran) 14:30 Docusate Sodium PHA 11/10/24 In Process Capsule (Colace 14:30 Fall Risk Precautions DAVID 11/10/[address] 14:28 Complete Blood Count LAB 11/11/24 Verified 04:00 Comprehensive LAB 11/11/24 Verified Metabolic Panel 04:00 Cardiac DIET 11/10/24 Transmitted Diet-2gna,Lofat,Lochol Dinner Condition: Serious DAVID 11/10/24 In Process 14:28 Acetaminophen Tablet PHA 11/10/24 In Process (Tylenol Tablet) 14:30 Maintain Bed Rest DAVID 11/10/24 In Process 14:28 Sequential DAVID 11/10/24 In Process Compression Device Admit ADMIT 11/10/24 Verified 16:47 Nitroglycerin PHA 11/10/24 Verified Sublingual (Ntrostat 17:00 Morphine Sulfate PHA 11/10/24 Verified Injection 17:00 Stat Ekg For Chest [facility] 11/10/24 Verified Pain 16:47 Notify Of Changes [facility] 11/10/24 Verified From Base 16:47 Oracle Database Consultant For [facility] 11/10/24 Verified 24 Hours 16:47 Emergency Dysrhythmia [facility] 11/10/24 Verified Protocol 16:47 Rhythm Strips Once [facility] 11/10/24 Verified Every Shift 16:47 Oxygen By Nasal RT 11/10/24 Verified Cannula 16:47 Problem List: (1) Symptomatic anemia (2) Generalized weakness Date of Service: Nov 10, 2024 Billing Provider: ABENA QUIROGA DNP Common Visit Codes: [id number] INP/OBS CARE (HIGH) ABENA QUIROGA DNP Nov 10, 2024 16:49
[2024-11-10] MEDS ORDERED: MORPHINE SULFATE INJ 2 MG/ml SYRG IV PRN (17:00)
[2024-11-10] MEDS ORDERED: NITROGLYCERIN 0.4 MG SL TAB SL PRN (17:00)
[2024-11-10 17:06] LABS: Urine Protein, UAD Negative (Negative)
--- NOTE | 2024-11-10 19:50 | DVHINCON2 ---
Date of service: Nov 10, 2024 Reason for Consultation Severe Anemia History of Present Illness HPI 44y female, Ectopic x 1, SAB x 1 LMP 10/16/2024 BC: None #Anemia, severe Hb 3.9 - Endorses heavy menses for "several years". See Consultation [facility] Dr Mckeon from 10/2022 - Hx of blood transfusion x 3 lifetime episodes due to menorrhagia - Currently has an Fountain Operator MD in [place], last seen on 11/05/24, and planned "surgery" to remove "fibroids" and treat bleeding ( Patient is a poor historian) - States PAP smear this year normal and maybe had an endometrial biopsy (unsure, poor historian) - Currently uterine bleeding is mild to moderate and has been continuous since LMP 10/16/24 - Denies significant pain PMHx: Anemia, Lupus, HTN, Obesity Home Meds Active Scripts Naproxen Sodium (Naproxen) 220 Mg Tab, 400 MG PO BID PRN for 30 Days, #110 TAB Prov:GRAYSON PARRA MD 03/31/22 Furosemide (Lasix) 20 Mg Tb, 40 MG GT DAILY for 30 Days, #60 TAB Prov:GRAYSON PARRA MD 03/31/22 Sacubitril-Valsartan (Entresto 24-26 mg) 1 Tab Tab, 1 TAB PO BID for 30 Days, #60 TAB Prov:GRAYSON PARRA MD 03/31/22 Carvedilol (COREG) 3.125 Mg Tab, 6.25 MG OR BID for 30 Days, #120 TAB Prov:GRAYSON PARRA MD 03/31/22 Ferrous Sulfate (Ferrous Sulfate) 325 Mg Tab, 325 MG PO DAILY for 30 Days, #30 TAB Prov:GARYSON PARRA MD 03/31/22 Reported Medications Ferrous Sulfate (Iron) 325 Mg Tab, 325 MG PO DAILY, TAB 07/25/24 Cholecalciferol (VITAMIN D3) 2,000 Unit Tab, 5000 UNIT PO QWEEKLY, TAB 07/25/24 Nifedipine (Nifedipine Er) 30 Mg Tab, 1 TAB PO DAILY, #90 TAB 1 Refill 07/25/24 Hydroxychloroquine Sulfate (Hydroxychloroquine Sulfat) 200 Mg Tab, 1 TAB PO BID 10/25/22 Folic Acid (Folic Acid) 1 Mg Tab, 1 TAB PO DAILY 10/25/22 Methotrexate (Methotrexate) 2.5 Mg Tab, 4 TAB PO BID 10/25/22 Aspirin (Aspirin Low Dose) 81 Mg Tab, 1 TAB PO DAILY 10/25/22 Prednisone (Prednisone) 10 Mg Tab, 1 TAB PO DAILY 10/25/22 Past Medical History Cardiac: HTN Pulmonary: No pertinent Hx Central Nervous System: No pertinent Hx GI: No pertinent Hx Hemotology/Oncology: Anemia NOS Hepatobiliary: No pertinent Hx Psychiatric: No pertinent Hx Musculoskeletal: No pertinent Hx Rheumotologic: SLE Infectious Disease: No peritnent Hx ENT: No pertinent Hx Renal/: No pertinent Hx Endocrine: No pertinent Hx Dermatology: No pertinent Hx Past Surgical History: , Laparotomy, Other (Salpingectomy left (ectopic)) Family History: No pertinent Hx Patient Family History: Diabetes mellitus G8 SISTER Smoker: No Hx (Negative) Alocohol: Rare Drugs: None Lives with: With family Review of Systems Constitutional: Malaise, Weakness Ears, Nose, & Throat: No symptom reported Eyes: No symptom reported Pulmonary/Respiratory: Dyspnea Cardiovascular: Palpitations, Lt Headedness Gastrointestinal: No symptom reported Genitourinary: No symptom reported Musculoskeletal: No symptom reported Skin: No symptom reported Psychiatric: No symptom reported Endocrine: No symptom reported Hemotologic/Lymphatic: Anemia H&P Exam Vital Signs Vital Signs Date Time Temp Pulse Resp B/P (MAP) Pulse Ox O2 Delivery O2 Flow Rate FiO2 11/10/24 19:30 98.2 90 13 158/93 98.2 11/10/24 18:00 100 11/10/24 09:52 Room Air* 0 21 General Appeara: Obese Head Exam: Normal inspection Eye Exam: bilateral eye Conjunctivae pale Pulmonary/Respiratory: Other (Unlabored breathing) Cardiovascular/Chest: Normal inspection Abdominal Exam: Other (Obese, no masses) Rectal Exam: Deferred Pelvic Exam: Not done [employer] Exam: Normal hearing Neuro/Mental St: Alert Appearance: Appropriate appearance Skin Exam: Normal inspection Labs/Xrays Labs Test 11/10/24 11:44 11/10/24 09:36 11/10/24 09:33 Range/Units White Blood Count 4.9 4.4-10.8 10^3/uL Red Blood Count 1.99 L 4.0-5.20 10^6/uL Hemoglobin 3.9 *L 12.2-16.2 g/dL Hematocrit 13.1 L 36.0-46.0 % Mean Corpuscular Volume 65.9 L 80.0-100.0 fL Mean Corpuscular Hemoglobin 19.8 L 28.0-32.0 pg Mean Corpuscular Hemoglobin Concent 30.1 L 32.0-36.0 g/dL Red Cell Distribution Width 21.6 H 11.8-14.3 % Platelet Count 150 140-450 10^3/uL Mean Platelet Volume 7.8 6.9-10.8 fL Neutrophils (%) (Auto) 81.7 H 37.0-80.0 % Lymphocytes (%) (Auto) 11.2 10.0-50.0 % Monocytes (%) (Auto) 5.5 0.0-12.0 % Eosinophils (%) (Auto) 1.2 0.0-7.0 % Basophils (%) (Auto) 0.4 0.0-2.0 % Neutrophils # (Auto) 4.0 1.6-8.6 10 ^3/uL Lymphocytes # (Auto) 0.6 0.4-5.4 10 ^3/uL Monocytes # (Auto) 0.3 0-1.3 10 ^3/uL Eosinophils # (Auto) 0.1 0-0.8 10 ^3/uL Basophils # (Auto) 0 0-0.2 10 ^3/uL Nucleated Red Blood Cells 0.6 % Platelet Estimate Adequate Hypochromasia (manual) Marked Anisocytosis (manual) Slight Microcytosis Marked Prothrombin Time 11.4 9.3-11.8 sec Prothrombin Time INR 1.08 0.9-1.15 Activated Partial Thromboplast Time 21.9 L 24.5-34.5 SEC Sodium Level 140 136-145 mmol/L Potassium Level 4.3 3.5-5.1 mmol/L Chloride Level 109 H 98-107 mmol/L Carbon Dioxide Level 22 20-31 mmol/L Anion Gap 9 5-15 Blood Urea Nitrogen 13 9-23 mg/dL Creatinine 0.89 0.550-1.02 mg/dL Glomerular Filtration Rate Calc 82 >90 mL/min BUN/Creatinine Ratio 14.6 10.0-20.0 Serum Glucose 103 74-106 mg/dL Lactic Acid Level 1.3 0.4-2.0 mmol/L Calcium Level 8.9 8.7-10.4 mg/dL Total Bilirubin 0.2 0.2-1.0 mg/dL Aspartate Amino Transferase (AST) 8 L 13-40 U/L Alanine Aminotransferase (ALT) < 9 7-40 U/L Alkaline Phosphatase 61 46-116 U/L Total Protein 6.0 5.7-8.2 g/dL Albumin 3.6 3.2-4.8 g/dL Urine Color Light-yellow Yellow Urine Clarity Clear Clear Urine pH 7.0 5.0-9.0 Urine Specific [place] 1.040 H 1.001-1.035 Urine Protein Negative Negative Urine Ketones Negative Negative Urine Blood 2+ H Negative /uL Urine Nitrite Negative Negative Urine Bilirubin Negative Negative Urine Urobilinogen Normal Negative mg/dL Urine Leukocyte Esterase Negative Negative /uL Urine RBC 89 0 - 4 /hpf Urine Microscopic WBC 3 0-5 /HPF Urine Squamous Epithelial Cells Few <5 /hpf Urine Bacteria None seen None Seen /hpf Urine Glucose Normal Normal mg/dL POC Glucose 99 70-106 mg/dl Assessment/Plan Admitting Diagnosis: Severe Symptomatic Anemia Menorrhagia due to AUB-L (leiomyoma) Plan Recommend preg test, pelvic US Can try Tranexamic acid 2 tabs 650mg PO TID x 5 days (denies hx of thrombosis or lupus associated antiphospholipid syndrome) Transfuse blood and blood products/FFP as needed Patient is already being followed by [facility] at [place] and is awaiting medical clearance for "surgery" Would consider D&C on this hospitalization only if bleeding cannot be controlled medically or becomes at risk for hypovolemic shock despite blood replacement Consider IR consult for [place] (uterine artery embolization) Plan discussed with: Patient Date of Service: Nov 10, 2024 Billing Provider: MADISON PATEL DO Common Visit Codes: CONSULT ONLY Consultation Codes: [id number] CONSULT <60MIN MADISON PATEL DO Nov 10, 2024 19:50
[2024-11-10] MEDS: ACETAMINOPHEN 325 MG TAB PO PRN (20:03)
[2024-11-10] MEDS: HYDROcodone-ACET 5/325MG TAB PO PRN (20:04)
[2024-11-10] MEDS: ONDANSETRON HCL 4 MG/2 ML VIAL IV PRN (20:10)
--- NOTE | 2024-11-10 21:43 | DVH ---
Procedure: US PELVIC 11/10/2024 09:01 PM Indication: Menorrhagia, fibroids Comparison: US PELVIC on DOS: 10/24/22 Technique: Real-time grayscale and color images were obtained . FINDINGS: Evaluation is limited due to body habitus and transabdominal technique. UTERUS: Anteverted, measuring 10.8 x 5.4 x 6.7 cm in length. Heterogeneous myometrium without a dis crete lesion. ENDOMETRIAL STRIPE: 9 mm in thickness. RIGHT OVARY: 3.8 x 2.4 x 2.6 cm in length. 12.6 mL in volume. Preserved vascular flow. 2.2 cm right ovarian cyst. LEFT OVARY: Not visualized. CUL-DE-SAC: No significant fluid noted. OTHER: None. IMPRESSION: 1. Limited evaluation as above. Heterogeneous uterus. If clinically indicated, a nonemergent MRI of the pelvis may be beneficial in further assessment. 2. 2.2 cm right ovarian cyst.
[2024-11-10] MEDS: TRANEXAMIC ACID 1,000 MG in SODIUM CHL 0.9% 100 ML IV ONE (22:48)
[2024-11-11] VITALS (15 sets, daily range): BP systolic 108–149; BP diastolic 52–97; PULSE 55–81; RESP 14–21; TEMP 97.1–98.4; O2SAT 98–100
[2024-11-11] MEDS: CEFEPIME 1GM/ 50ML 50 ML IV SCH (00:18)
[2024-11-11 07:17] LABS: Hematocrit 18.7 % (36.0-46.0); Mean Corpuscular Hemoglobin 23.7 pg (28.0-32.0); Mean Corpuscular Volume 72.0 fL (80.0-100.0); Nucleated Red Blood Cells % 0.6 %
[2024-11-11 07:23] LABS: Hemoglobin 6.2 g/dL (12.2-16.2)
[2024-11-11 07:34] LABS: Albumin 3.2 g/dL (3.2-4.8); Alkaline Phosphatase 61 U/L (46-116); Anion Gap 8 (5-15); BUN/Creatinine Ratio 10.3 (10.0-20.0); Blood Urea Nitrogen 10 mg/dL (9-23); Carbon Dioxide 24 mmol/L (20-31); Glucose 96 mg/dL (74-106); Potassium 4.2 mmol/L (3.5-5.1); Sodium 140 mmol/L (136-145)
[2024-11-11 07:35] LABS: Alanine Aminotransferase < 9 U/L (7-40); Bilirubin, Total 0.8 mg/dL (0.2-1.0); Calcium 8.6 mg/dL (8.7-10.4); Chloride 108 mmol/L (98-107); Total Protein 5.5 g/dL (5.7-8.2)
[2024-11-11] MEDS: PANTOPRAZOLE 40 MG/10 ML VIAL INJ IV SCH (09:48)
--- NOTE | 2024-11-11 12:57 | DVHPN2 ---
Progress Note Date Seen: Nov 11, 2024 Medical Necessity Reason Pt with a Central, PICC or Fol: No Subjective Patient reports: No new complaints Review of Systems: HEENT:Normal, CVS:Normal, RESPIRATORY:Normal, GI:Normal, :Normal, MSK:Normal, NEURO:Normal Objective vital signs Vital Sign Date Time Temp Pulse Resp B/P (MAP) Pulse Ox O2 Delivery O2 Flow Rate FiO2 11/11/24 12:09 97.9 80 20 118/54 97.9 11/11/24 08:47 98 11/10/24 22:20 Room Air* 0 21 Total Intake and Output 11/10/24 11/10/24 11/11/24 15:00 23:00 07:00 Intake Total 1800 ml 2180 ml 150 ml Output Total 0 ml Balance 1800 ml 2180 ml 150 ml medications Current Medications Medications Dose Ordered Sig/Shara Route Start Time Stop Time Status Last Admin Dose Admin Cefepime HCl 50 ml @ 12.5 mls/hr Q8HR IV 11/10/24 22:00 11/11/24 05:18 12.5 MLS/HR Pantoprazole Sodium 40 mg DAILY IV 11/11/24 10:00 11/11/24 09:48 40 MG Sodium Chloride 1,000 ml @ 60 mls/hr [id number] IV 11/10/24 14:30 11/10/24 16:42 60 MLS/HR Acetaminophen/ Hydrocodone Bitart 1 tab Q4HP PRN PO 11/10/24 14:30 11/11/24 09:48 1 TAB Ondansetron HCl 4 mg Q4HP PRN IV 11/10/24 14:30 11/11/24 00:50 4 MG Docusate Sodium 100 mg BIDPRN PRN PO 11/10/24 14:30 Acetaminophen 650 mg Q6HP PRN PO 11/10/24 14:30 11/10/24 20:03 650 MG Nitroglycerin 0.4 mg Q5MINP PRN SL 11/10/24 17:00 Morphine Sulfate 2 mg Q30M PRN IV 11/10/24 17:00 Examination: GENERAL:Normal, HEENT:Normal, NECK:Normal, LUNGS:Normal, CVS:Normal, ABDOMEN:Normal, MSK:Normal, SKIN:Normal, NEURO:Normal, :Normal laboratory and microbiology Laboratory Tests 11/11/24 06:56 Test 11/11/24 06:56 Range/Units Serum Glucose 96 74-106 mg/dL Microbiology Date/Time Source Procedure Growth Status 11/10/24 11:44 Blood Blood Culture - Preliminary NO GROWTH AFTER 24 HOURS OF INCUBATION. Resulted Problem List/Assessment/Plan Problem List/Assessment/Plan #1 acute blood loss anemia: transfuse #2 menorrhagia: [employer] consult, cont med #3 obesity #4 htn #5 ? RA Plan discussed with: Patient Sepsis reassessment post fluid Is the fluid challenge complet: Yes Date of Reassessment: Nov 10, 2024 Time of Reassessment: 1319 Blood Culture Time: 1144 Time Antibiotics Given: 1147 Systolic BP: 127 Diastolic BP: 70 Blood Pressure Mean: 89 Respiration: 18 Respiratory Effort: Non-Labored Respiratory Pattern: Regular Oxygen Saturation: 100 Pulse Rate: 92 Pulse Location: Radial Pulse Strength: Normal Pulse Assessment Method: Palpation Pulse Rhythm: Regular Capillary Refill: < 3 seconds Heart Sounds: S1 & S2 Breath sounds: Clear Skin Moisture: Dry Skin Tugor: WNL Skin Color: WNL Date of Service: Nov 11, 2024 Billing Provider: LEIGHA VILLEGAS MD Common Visit Codes: [id number] INP/OBS CARE(HIGH) CC Plasma Assessment Blood Product Administration S: [id number] LEIGHA VILLEGAS MD Nov 11, 2024 12:57
[2024-11-11 15:05] LABS: Hemoglobin 9.9 g/dL (12.2-16.2); Mean Corpuscular Hemoglobin 24.8 pg (28.0-32.0)
[2024-11-11 15:07] LABS: Hematocrit 30.2 % (36.0-46.0); Mean Corpuscular Volume 75.4 fL (80.0-100.0); Nucleated Red Blood Cells % 1.2 %
[2024-11-12 05:00] VITALS: BP 135/79; PULSE 68; RESP 14; TEMP 97.7; O2SAT 95
[2024-11-12] MEDS: DOCUSATE SOD 100 MG CAP PO PRN (06:18)
[2024-11-12 08:00] VITALS: PULSE 62
[2024-11-12 08:44] VITALS: BP 128/77; PULSE 57; RESP 19; TEMP 97.8; O2SAT 98
[2024-11-12] MEDS ORDERED: HYDR1TAB97 PO (10:30)
--- NOTE | 2024-11-12 10:35 | DVHDS2 ---
Discharge Summary Date of Admission Nov 10, 2024 at 16:47 Date of Discharge: Nov 12, 2024 Labs/Diagnostic Data: Laboratory Results Test 11/11/24 14:57 11/11/24 06:56 11/10/24 11:44 11/10/24 09:36 White Blood Count 6.7 10^3/uL (4.4-10.8) Red Blood Count 4.01 10^6/uL (4.0-5.20) Hemoglobin 9.9 g/dL (12.2-16.2) Hematocrit 30.2 % (36.0-46.0) Mean Corpuscular Volume 75.4 fL (80.0-100.0) Mean Corpuscular Hemoglobin 24.8 pg (28.0-32.0) Mean Corpuscular Hemoglobin Concent 32.8 g/dL (32.0-36.0) Red Cell Distribution Width 20.7 % (11.8-14.3) Platelet Count 139 10^3/uL (140-450) Mean Platelet Volume 8.6 fL (6.9-10.8) Neutrophils (%) (Auto) 78.1 % (37.0-80.0) Lymphocytes (%) (Auto) 13.0 % (10.0-50.0) Monocytes (%) (Auto) 6.3 % (0.0-12.0) Eosinophils (%) (Auto) 2.2 % (0.0-7.0) Basophils (%) (Auto) 0.4 % (0.0-2.0) Neutrophils # (Auto) 5.2 10 ^3/uL (1.6-8.6) Lymphocytes # (Auto) 0.9 10 ^3/uL (0.4-5.4) Monocytes # (Auto) 0.4 10 ^3/uL (0-1.3) Eosinophils # (Auto) 0.1 10 ^3/uL (0-0.8) Basophils # (Auto) 0 10 ^3/uL (0-0.2) Nucleated Red Blood Cells 1.2 % Sodium Level 140 mmol/L (136-145) Potassium Level 4.2 mmol/L (3.5-5.1) Chloride Level 108 mmol/L (98-107) Carbon Dioxide Level 24 mmol/L (20-31) Anion Gap 8 (5-15) Blood Urea Nitrogen 10 mg/dL (9-23) Creatinine 0.97 mg/dL (0.550-1.02) Glomerular Filtration Rate Calc 74 mL/min (>90) BUN/Creatinine Ratio 10.3 (10.0-20.0) Serum Glucose 96 mg/dL (74-106) Calcium Level 8.6 mg/dL (8.7-10.4) Total Bilirubin 0.8 mg/dL (0.2-1.0) Aspartate Amino Transferase (AST) 11 U/L (13-40) Alanine Aminotransferase (ALT) < 9 U/L (7-40) Alkaline Phosphatase 61 U/L (46-116) Total Protein 5.5 g/dL (5.7-8.2) Albumin 3.2 g/dL (3.2-4.8) Platelet Estimate Adequate Hypochromasia (manual) Marked Anisocytosis (manual) Slight Microcytosis Marked Prothrombin Time 11.4 sec (9.3-11.8) Prothrombin Time INR 1.08 (0.9-1.15) Activated Partial Thromboplast Time 21.9 SEC (24.5-34.5) Lactic Acid Level 1.3 mmol/L (0.4-2.0) Beta HCG, Quantitative 0.6 mIU/mL (1.5-4.2) Urine Color Light-yellow (Yellow) Urine Clarity Clear (Clear) Urine pH 7.0 (5.0-9.0) Urine Specific [place] 1.040 (1.001-1.035) Urine Protein Negative (Negative) Urine Ketones Negative (Negative) Urine Blood 2+ /uL (Negative) Urine Nitrite Negative (Negative) Urine Bilirubin Negative (Negative) Urine Urobilinogen Normal mg/dL (Negative) Urine Leukocyte Esterase Negative /uL (Negative) Urine RBC 89 /hpf (0 - 4) Urine Microscopic WBC 3 /HPF (0-5) Urine Squamous Epithelial Cells Few /hpf (<5) Urine Bacteria None seen /hpf (None Seen) Urine Glucose Normal mg/dL (Normal) Test 11/10/24 09:33 POC Glucose 99 mg/dl (70-106) Other Laboratory Tests 11/11/24 14:57 11/11/24 06:56 Brief Hx & Hospital Course: see dictated note Condition at Discharge: Fair Final Diagnosis/Problems List ANEMIA Discharge Disposition: Home Discharge Instruct/Medications Diet: Cardiac 2g Na,low cholest Activity: No Restrictions, As Tolerated Follow Up/Referral: FU WITH PCP/[employer] Medications: RESUME HOME MEDS SCRIPT TO PHARMACY Scheduled Cholecalciferol (Vitamin D3), 5,000 UNIT PO QWEEKLY, (Reported) Ferrous Sulfate (Iron), 325 MG PO DAILY, (Reported) Hydroxychloroquine Sulfate (Hydroxychloroquine Sulfat), 1 TAB PO BID, (Reported) Nifedipine (Nifedipine Er), 1 TAB PO DAILY, (Reported) Prednisone (Prednisone), 1 TAB PO DAILY, (Reported) Scheduled PRN Hydrocodone-Acetaminophen (Hydrocodone/Acetaminophen 5-325 mg), 1 TAB PO TID PRN Naproxen Sodium (Naproxen), 400 MG PO BID PRN Discharge Statement: "Patient was advised to return to the ER or call 911 if any headaches, dizziness, shortness of breath, chest pain, abdominal pain, bleeding, fevers, or worsening of medical condition. Patient was counseled about treatment plan, medications, possible side effects, patientverbalized understanding. All questions were answered to the best of my ability. This discharge took greater then 30 minutes in planning, reviewing documentation, counseling the patient, and discussing with other team members." ASSESSMENT ASSESSMENT Assessment ANEMIA Date of Service: Nov 12, 2024 Billing Provider: LEIGHA VILLEGAS MD Common Visit Codes: 02562-VUF/OBS DISCH DAY >30min LEIGHA VILLEGAS MD Nov 12, 2024 10:35
--- NOTE | 2024-11-12 12:11 | DVHDS ---
DATE OF DISCHARGE: 11/12/2024 HISTORY OF PRESENT ILLNESS: The patient is a 44-year-old lady who was admitted with history of menorrhagia, dizziness, and shortness of breath. She has a history of rheumatoid arthritis and hypertension. HOSPITAL COURSE: The patient had a CT of abdomen and pelvis that showed no acute findings. The patient had a pelvic ultrasound that showed a 2.2 cm right ovarian cyst. The patient was seen in [employer] consult by Dr. Lacey who recommended outpatient followup for consideration of D and C. The patient will now be discharged home to resume her home medication. She is to avoid nonsteroidals and she will be placed on [place] p.r.n. for pain. The patient's bleeding has improved. The patient's hemoglobin has improved from 3.9 at admission to 9.9 at discharge. FINAL DIAGNOSES: * Acute blood loss anemia, status post transfusion. * Menorrhagia. * Rheumatoid arthritis. * Obesity. * Hypertension. Time spent in discharge planning and review of plan with the patient and nursing was 38 minutes. MD ADITHYA Wei/ANDI/ADOLFO TID: [id number] RECEIPT: [id number]
[2024-11-12 13:00] VITALS: BP 126/73; PULSE 82; RESP 17; TEMP 98.1; O2SAT 100
== END 2024-11-12 12:20 | disposition home or self-care (01) | DRG 663 ==
LOC: ER 09:09 → OVERFLOW 16:47 → TELE-WESTW 23:32
PROVIDERS: ADMIT Internal Medicine; ATTEND Internal Medicine
PROC: 30233N1 Transfusion of Nonautologous Red Blood Cells into Peripheral Vein, Percutaneous Approach (ICD-10-PCS; principal; 2024-11-10)
DX: D62 Acute posthemorrhagic anemia (principal); D25.9 Leiomyoma of uterus, unspecified; N92.0 Excessive and frequent menstruation with regular cycle; M06.9 Rheumatoid arthritis, unspecified; N83.201 Unspecified ovarian cyst, right side; I10 Essential (primary) hypertension; E66.9 Obesity, unspecified; Z68.32 Body mass index [BMI] 32.0-32.9, adult; Z79.82 Long term (current) use of aspirin; Z79.899 Other long term (current) drug therapy; Z83.3 Family history of diabetes mellitus; Z87.59 Personal history of other complications of pregnancy, childbirth and the puerperium
CPT/HCPCS: 36415; 71045; 74177; 76856; 80053; 81001; 82962; 83605; 84702; 85025; 85610; 85730; 86850; 86900; 86901; 86920; 87040; 96365; 96366; 96367; 96375; G0378; J2405; J2470